=== PATIENT | female | born 1960 | race Caucasian/White ===

== ENCOUNTER 2022-03-19 11:10 | Emergency (ER) | payer OTHER, SELFPAY ==
--- NOTE | ~2022-03-19 | CT_ITS ---
EXAMINATION: CT HEAD WITHOUT CONTRAST CLINICAL INFORMATION: Dizziness COMPARISON: None TECHNIQUE: Contiguous axial imaging was performed from the skull base to vertex without intravenous administration of contrast. This CT examination was performed using dose optimization techniques as appropriate, variously including the following: *Automated exposure control *Adjustment of mA and/or kV according to patient size (this includes techniques or standardized protocols for targeted exams where dose is matched to indication/reason for exam; i.e. extremities or head) *Use of iterative reconstruction technique DLP: 635 mGy-cm FINDINGS: Head: There is no evidence of acute intracranial hemorrhage or edematous territorial infarction. No abnormal mass effect or midline shift is seen. Dasilva to white matter differentiation is well preserved. No extra-axial fluid collections are identified. No hydrocephalus. No significant volume loss. There is no abnormal attenuation within the brain parenchyma. No acute osseous or soft tissue abnormality. The mastoid air cells and visualized portions of the paranasal sinuses are well-aerated. CT/CT head/brain wo IV con IMPRESSION: No CT evidence of acute intracranial bleed or edematous acute territorial infarction.
--- NOTE | ~2022-03-19 | XR_ITS ---
EXAMINATION: XR CHEST CLINICAL INFORMATION: Dizziness. COMPARISON: None TECHNIQUE: 2 views of the chest were obtained. FINDINGS: No significant abnormality is noted involving the heart, lungs, mediastinum, bony thorax or soft tissues. XR/XR chest 2V IMPRESSION: No acute cardiopulmonary process.
[2022-03-19 11:13] VITALS: BP 212/117; PULSE 85; RESP 18; TEMP 36.7; O2SAT 98; BMI 28.3
[2022-03-19 11:18] LABS: Glucose, Whole Blood 168 mg/dL (60-115)
--- NOTE | 2022-03-19 11:23 | ED.GENADULT ---
HPI - General Adult General Chief complaint: General Medical Stated complaint: High blood sugar/Dizzy Time Seen by Provider: 03/19/22 11:23 Source: patient Mode of arrival: ambulatory Limitations: no limitations History of Present Illness HPI narrative: Patient is a 61 year old female presenting to the emergency department today with dizziness and nausea x1 week. Patient states that over the last week she is dizzy when she climbs stairs and has been having intermittent abdominal pain. Patient states that she drinks at least 1-2 beers a day. Patient states that she is on as needed Ativan, for anxiety. Patient states that she was on lisinopril for high blood pressure, many years ago, but it made her sick so she stopped it. Patient denies any dizziness, lightheadedness, vomiting, fever, chills, blurry vision, double vision, loss of vision, chest pain, difficulty breathing, shortness of breath, back pain, night sweats, pain with urination, increased urinary frequency, increased urinary urgency, blood in her urine or stool, syncope or a near syncopal episode, recent trauma or falls, bowel incontinence, bladder incontinence, bowel retention, bladder retention, or any other complaints at this time. Onset (ago): week(s) (1) Location: abdomen Radiation: non-radiation Severity: mild Severity scale (1-10): 2 Quality: dull Pain Consistency: intermittent and now resolved Relieving factors: none Exacerbating factors: none Associated symptoms: nausea/vomiting Treatments prior to arrival: none Related Data Allergies Allergy/AdvReac Type Severity Reaction Status Date / Time No Known Allergies Allergy Verified 03/19/22 11:15 Review of Systems Constitutional: Constitutional: Reports no additional constitutional complaints, Denies chills, Denies fever(s) and Denies night sweats Eyes: Eyes: Reports no additional eye complaints, Denies blurry vision, Denies change in vision, Denies diplopia, Denies eye discharge, Denies loss of vision and Denies eye pain ENT: Reports dizziness Cardiovascular: Cardiovascular: Reports no additional cardiovascular complaints, Denies chest pain, Denies lightheadedness, Denies Loss of Consciousness and Denies dyspnea Respiratory: Respiratory: Reports no additional respiratory complaints and Denies dyspnea Gastrointestinal: Gastrointestinal: Reports no additional gastrointestinal complaints, Reports abdominal pain, Denies melena, Denies hematochezia, Denies change in bowel habits, Denies change in stool character and Reports nausea Genitourinary: Genitourinary: Denies hematuria, Denies urinary frequency, Denies dysuria, Denies urinary incontinence, Denies urinary hesitancy and Denies urinary urgency Musculoskeletal: Musculoskeletal: Reports no additional musculoskeletal complaints, Denies numbness and Denies tingling Neurologic: Reports dizziness, Denies loss of vision, Denies numbness and Denies tingling Psychiatric: Psychiatric: Reports no additional psychiatric complaints Endocrine: Endocrine: Reports no additional endocrine complaints Hematologic/Lymphatic: Hematologic/Lymphatic: Reports no additional hematologic/lymphatic complaints Allergic/Immunologic: Allergic/Immunologic: Reports no additional allergic/immunologic complaints [facility] Past Medical History Attestation statement: The following information was validated with the patient. Source: old records reviewed Social History Social History Advance Directives: Yes Advance Directives Information Provided: Yes Advance Directives on File: No Physical Exam ED Vital Signs: Vital Signs - 24 hr 03/19/22 11:13 03/19/22 11:33 03/19/22 14:31 Temperature 98.1 F Pulse Rate 85 91 69 Respiratory Rate 18 18 18 Blood Pressure 212/117 H 191/107 H 191/105 H Pulse Oximetry 98 98 98 Oxygen Delivery Method Room Air Room Air Room Air BMI result Body Mass Index 28.3 Const General: cooperative, no acute distress, alert and awake Nutritional Appearance: well nourished Orientation/consciousness: patient oriented x3 Limitations: no limitations HENMT Head: Yes normal to inspection and Yes atraumatic Ears: hearing grossly normal bilaterally and external ears normal General nose exam: Normal external nose present, no nasal discharge noted and no epistaxis Face and sinus: Yes normal facial exam, No abrasion and No laceration Mouth: Normal oral and palatal mucosa present, no drooling and no muffled voice Eyes General: appearance normal, both eyes and all related structures Periorbital: periorbital findings normal Eyelids: Yes eyelids normal Conjunctivae: conjunctivae normal Pupils: Equal, round and reactive pupils present EOM: EOMs intact bilaterally Neck Neck: Yes normal visual inspection, Yes full ROM and Yes no lymphadenopathy Chest Chest palpation & inspection: normal inspection of the chest Resp Effort & Inspection: normal respiratory effort and able to speak in complete sentences Auscultation: clear to auscultation bilaterally Cardio Rate: regular rate Rhythm: regular rhythm GI Inspection: Yes normal to inspection Palpation (GI): Soft to palpation, not firm, nontender, no guarding and not rigid Neuro General: patient oriented x3 and moves all extremities Cranial nerves: Yes Equal, round and reactive pupils present Cognition (Neuro): normal cognition Motor exam (neuro): 5/5 motor strength present throughout Sensory Exam: Normal double simultaneous stimulation for sensation Coordination: [id number] test normal Extrem General: Yes normal to inspection, Yes full ROM and Yes capillary refill normal Psych Appearance: grossly normal Mental Status: mental status grossly normal Affect: normal affect Attitude: cooperative Thought process: Normal thought process present Thought content: Normal thought content present Insight: Good insight present (Psych) NIH Stroke Scale Internal: Initial- Upon Arrival Time: 11:23 Level of Consciousness: Alert Level of Consciousness Questions: Answers both questions correctly Level of Consciousness Commands: Performs both tasks correctly Best Gaze: Normal Visual: No visual loss Facial Palsy: Normal Motor Arm (Right): No drift Motor Arm (Left): No drift Motor Leg (Right): No drift Motor Leg (Left): No drift Limb Ataxia: Absent Sensory: Normal Best Language: No aphasia Dysarthia: Normal Extinction and Inattention: No abnormality Score: 0 Medical Decision Making MDM Narrative Medical decision making narrative: Patient is a 61 year old female presenting to the emergency department today with intermittent dizziness, intermittent abdominal pain, intermittent nausea. Patient's physical exam was unremarkable. Including a negative stroke exam. Patient's blood work showed hyponatremia at 132, as well as mildly elevated liver enzymes. Patient's elevated liver enzymes are consistent with daily alcohol use. Patient's head CT and chest x-ray showed no acute process. I explained my physical exam findings as well as all test results to the patient and the patient's fiancee. I answered all questions asked by the patient and the patient's fiancee. Patient received. Patient was hypertensive throughout her stay in the department. However, when discussing starting hypertension medication, the patient stated she would rather start with her primary care provider. I agreed with the patient's decision as this would have better follow-up. I stressed the importance of the patient taking her medication as prescribed. I stressed the importance of the patient following up with her primary care provider. I stressed the importance of the patient returning to the emergency department immediately if her symptoms were to worsen or if she were to develop any dizziness, shortness of breath, difficulty breathing, chest pain, blurry vision, loss of vision, nausea, vomiting, abdominal pain, fever, chills, back pain, or any other complaints. Patient and the patient's fiancee. Verbalized agreement and understanding with this treatment plan and discharge. Medical Records Medical records reviewed: Yes I reviewed the patient's medical records. Lab Data Lab results reviewed: Yes I reviewed the patient's lab results. Result diagrams: 03/19/22 11:41 03/19/22 11:41 Labs: Lab Results 03/19/22 03/19/22 03/19/22 Range/Units 11:14 11:41 11:41 WBC 6.8 (4.8-10.8) X10*3/uL RBC 3.90 L (4.20-5.50) X10*6/uL Hgb 13.6 (12.0-16.0) g/dl Hct 37.3 (37.0-47.0) % MCV 95.6 (80.0-98.0) fL MCH 34.9 H (27.0-33.0) pg MCHC 36.5 H (31.0-35.0) g/dl RDW 12.1 (11.0-16.0) % Plt Count 180 (160-400) X10*3/uL MPV 8.5 L (9.4-12.3) fL Immature Gran % (Auto) 0.3 (0.0-0.4) % Neut % (Auto) 76.7 H (45-73) % Lymph % (Auto) 14.5 L (20-40) % Faulkner % (Auto) 8.3 (2-11) % Eos % (Auto) 0.1 (0-4) % Baso % (Auto) 0.1 (0-2) % Lymph # (Auto) 1.0 L (1.2-4.9) X10*3/uL Faulkner # (Auto) 0.6 (0.1-1.2) X10*3/uL Eos # (Auto) 0.0 (0.0-0.4) X10*3/uL Baso # (Auto) 0.0 (0.0-0.2) X10*3/uL Abs Immat Gran (auto) 0.02 (0.00-0.03) X10*3/uL Absolute Neuts (auto) 5.2 (2.0-8.3) x10*3/uL Absolute Nucleated RBC 0.000 (0.0-0.012) X10*3/uL Nucleated RBC % (auto) 0.0 (0.0-0.2) /100WBC Sodium 132 L (135-145) mmol/L Potassium 4.2 (3.3-5.1) mmol/L Chloride 95 L (96-108) mmol/L Carbon Dioxide 25 (22-29) mmol/L Anion Gap 16 (12-20) BUN 6 L (9-16) mg/dL Creatinine 0.69 (0.5-1.4) mg/dL Estim Creat Clear Calc 73.6 Estimated GFR > 60 POC Glucose 168 H (60-115) mg/dL Random Glucose 142 H (60-115) mg/dL Calcium 9.7 (8.4-10.2) mg/dL Magnesium 1.7 (1.6-2.6) mg/dL Total Bilirubin 1.7 H (0.0-1.0) mg/dL AST 96 H (5-31) U/L ALT 98 H (0-31) U/L Alkaline Phosphatase 66 (39-117) U/L Total Protein 7.5 (6.5-8.0) g/dL Albumin 4.9 (3.5-5.0) g/dL Ethyl Alcohol mg/dL COVID-19 ([facility]) (Negative) COVID-19 Clin Com 03/19/22 03/19/22 Range/Units 11:41 11:41 WBC (4.8-10.8) X10*3/uL RBC (4.20-5.50) X10*6/uL Hgb (12.0-16.0) g/dl Hct (37.0-47.0) % MCV (80.0-98.0) fL MCH (27.0-33.0) pg MCHC (31.0-35.0) g/dl RDW (11.0-16.0) % Plt Count (160-400) X10*3/uL MPV (9.4-12.3) fL Immature Gran % (Auto) (0.0-0.4) % Neut % (Auto) (45-73) % Lymph % (Auto) (20-40) % Faulkner % (Auto) (2-11) % Eos % (Auto) (0-4) % Baso % (Auto) (0-2) % Lymph # (Auto) (1.2-4.9) X10*3/uL Faulkner # (Auto) (0.1-1.2) X10*3/uL Eos # (Auto) (0.0-0.4) X10*3/uL Baso # (Auto) (0.0-0.2) X10*3/uL Abs Immat Gran (auto) (0.00-0.03) X10*3/uL Absolute Neuts (auto) (2.0-8.3) x10*3/uL Absolute Nucleated RBC (0.0-0.012) X10*3/uL Nucleated RBC % (auto) (0.0-0.2) /100WBC Sodium (135-145) mmol/L Potassium (3.3-5.1) mmol/L Chloride (96-108) mmol/L Carbon Dioxide (22-29) mmol/L Anion Gap (12-20) BUN (9-16) mg/dL Creatinine (0.5-1.4) mg/dL Estim Creat Clear Calc Estimated GFR POC Glucose (60-115) mg/dL Random Glucose (60-115) mg/dL Calcium (8.4-10.2) mg/dL Magnesium (1.6-2.6) mg/dL Total Bilirubin (0.0-1.0) mg/dL AST (5-31) U/L ALT (0-31) U/L Alkaline Phosphatase (39-117) U/L Total Protein (6.5-8.0) g/dL Albumin (3.5-5.0) g/dL Ethyl Alcohol < 10 mg/dL COVID-19 ([facility]) Negative (Negative) COVID-19 Clin Com See Note Imaging Data Chest x-ray: Attestation: I personally reviewed and interpreted this imaging study as follows: My impression: No acute process Radiologist's impression: EXAMINATION: XR CHEST CLINICAL INFORMATION: Dizziness. COMPARISON: None TECHNIQUE: 2 views of the chest were obtained. FINDINGS: No significant abnormality is noted involving the heart, lungs, mediastinum, bony thorax or soft tissues. XR/XR chest 2V IMPRESSION: No acute cardiopulmonary process. Dictated By: Storm Salinas MD Signed By: Electronically signed by Storm Salinas MD 03/19/[address] scan - head: Attestation: I personally reviewed and interpreted this imaging study as follows: My impression: No acute process Radiologist's impression: EXAMINATION: CT HEAD WITHOUT CONTRAST CLINICAL INFORMATION: Dizziness? COMPARISON: None TECHNIQUE: Contiguous axial imaging was performed from the skull base to vertex without intravenous administration of contrast. This CT examination was performed using dose optimization techniques as appropriate, variously including the following: *Automated exposure control *Adjustment of mA and/or kV according to patient size (this includes techniques or standardized protocols for targeted exams where dose is matched to indication/reason for exam; i.e. extremities or head) *Use of iterative reconstruction technique DLP: 635 mGy-cm FINDINGS: Head: There is no evidence of acute intracranial hemorrhage or edematous territorial infarction. No abnormal mass effect or midline shift is seen. Dasilva to white matter differentiation is well preserved. No extra-axial fluid collections are identified. No hydrocephalus. No significant volume loss. There is no abnormal attenuation within the brain parenchyma. No acute osseous or soft tissue abnormality. The mastoid air cells and visualized portions of the paranasal sinuses are well-aerated. CT/CT head/brain wo IV con IMPRESSION: No CT evidence of acute intracranial bleed or edematous acute territorial infarction. Dictated By: Sal Klein MD Signed By: Electronically signed by Sal Klein MD 03/19/22 1211 Discharge Plan Discharge Clinical Impression: Acute hyponatremia Patient Disposition: Home, Self-Care Additional Instructions: Follow up with your primary care provider. Return to the emergency department immediately if your symptoms worsen or if you develop any dizziness, shortness of breath, difficulty breathing, chest pain, blurry vision, loss of vision, nausea, vomiting, abdominal pain, fever, chills, back pain, or any other complaints. Referrals: Torsten Roberts MD [Primary Care Provider] - Interventions: ED Discharge Assessment Last Done: 03/19/22 14:43 Discharge Date/Time: 03/19/22 14:45 Print Language: Lao
[2022-03-19] MEDS: Ondansetron ODT 4 MG TAB.RAPDIS TRANSLINGU (11:32)
[2022-03-19 11:33] VITALS: BP 191/107; PULSE 91; RESP 18; O2SAT 98
[2022-03-19 11:47] LABS: MANUAL DIFF FLAG NO
[2022-03-19 11:50] LABS: Basophils Percent Auto 0.1 % (0-2); Eosinophils Percent Auto 0.1 % (0-4); Hematocrit 37.3 % (37.0-47.0); Hemoglobin 13.6 g/dl (12.0-16.0); Imm Gran Abs Auto 0.02 X10*3/uL (0.00-0.03); Imm Gran Pct Auto 0.3 % (0.0-0.4); Lymphocytes Percent Auto 14.5 % (20-40); Mean Corpuscular HGB Conc 36.5 g/dl (31.0-35.0); Mean Corpuscular Hemoglobin 34.9 pg (27.0-33.0); Mean Corpuscular Volume 95.6 fL (80.0-98.0); Mean Platelet Volume 8.5 fL (9.4-12.3); Monocytes Absolute Auto 0.6 X10*3/uL (0.1-1.2); Monocytes Percent Auto 8.3 % (2-11); Neutrophils Absolute Auto 5.2 x10*3/uL (2.0-8.3); Neutrophils Percent Auto 76.7 % (45-73); Platelet Count 180 X10*3/uL (160-400); Red Cell Distribution Width 12.1 % (11.0-16.0); White Blood Count 6.8 X10*3/uL (4.8-10.8)
[2022-03-19 12:03] LABS: COVID-19 Test Negative (Negative)
[2022-03-19 12:16] LABS: Ethanol < 10 mg/dL
[2022-03-19 12:18] LABS: Alanine Aminotransferase 98 U/L (0-31); Albumin Level 4.9 g/dL (3.5-5.0); Alkaline Phosphatase 66 U/L (39-117); Anion Gap 16 (12-20); Aspartate Amino Transferase 96 U/L (5-31); Bilirubin Total 1.7 mg/dL (0.0-1.0); Blood Urea Nitrogen 6 mg/dL (9-16); Calcium 9.7 mg/dL (8.4-10.2); Carbon Dioxide 25 mmol/L (22-29); Chloride 95 mmol/L (96-108); Creatinine Clr Calc Pharmacy 73.6; Estimated Glomerular Filt Rate > 60; Glucose Random 142 mg/dL (60-115); Magnesium 1.7 mg/dL (1.6-2.6); Potassium 4.2 mmol/L (3.3-5.1); Sodium 132 mmol/L (135-145); Total Protein 7.5 g/dL (6.5-8.0)
[2022-03-19] MEDS: 0.9 % Sodium Chloride 1,000 ML 999 ML IV (13:06)
[2022-03-19 14:31] VITALS: BP 191/105; PULSE 69; RESP 18; O2SAT 98
== END 2022-03-19 14:45 | disposition home or self-care (01) ==
PROVIDERS: Physician Assistant Medical; Emergency Provider Emergency Medicine; PCP Pediatrics
DX: E87.1 Hypo-osmolality and hyponatremia (principal); I10 Essential (primary) hypertension; R42 Dizziness and giddiness; Z20.822 Contact with and (suspected) exposure to COVID-19
CPT/HCPCS: 36415; 70450; 71046; 80053; 82077; 82947; 83735; 85025; 87635; 96360; 99284

== ENCOUNTER 2023-08-07 10:47 | Outpatient (AMB) | payer OTHER, SELFPAY ==
--- NOTE | 2023-08-07 10:51 | HO.NEPHOV_ITS ---
HPI HPI Comments History of Present Illness Details I had the delight of seeing Jing who is a 62 year old female with history of hyponatremia and hypertension.she drinks at least 1-2 beers a day. Patient states that she used to take Ativan, for anxiety as on a needed basis. She was started on amlodipine in the past for blood pressure but was causing gingival issues and it was discontinued. Subsequently she was started on MILA inhibitor/hydrochlorothiazide which has been changed due to hyponatremia. Currently she is not on any diuretics. Patient denies any dizziness, lightheadedness, vomiting, fever, chills, blurry vision, double vision, loss of vision, chest pain, difficulty breathing, shortness of breath, back pain, night sweats, pain with urination, increased urinary frequency, increased urinary urgency, blood in her urine or stool, syncope or a near syncopal episode, recent trauma or falls, bowel incontinence, bladder incontinence, bowel retention, bladder retention, or any other complaints at this time. She has no weight loss, hemoptysis or any history of malignancy. She has not known to have any thyroid dysfunction, history of hyperkalemia, excessive free water intake, heart failure, paraproteinemia. She claims to be compliant with her medications. Her renal functions are normal. [facility] Medical History (Updated 09/04/23 @ 06:55 by Demetri Joseph MD) Mild anxiety Insomnia Internal hemorrhoids Osteoarthritis Lesion of liver Hyperkalemia Hyponatremia Hypercholesterolemia Essential (primary) hypertension Surgical History (Updated 08/07/23 @ 09:42 by Jenni Ortiz MA) H/O section H/O colonoscopy Family History (Updated 08/07/23 @ 10:38 by Jenni Ortiz MA) Father Arthritis Diabetes Heart disease Brother Malignant tumor of urinary bladder Sister Cerebral palsy Mother Amyotrophic lateral sclerosis Social History (Updated 08/07/23 @ 10:38 by Jenni Ortiz MA) Alcohol intake: current Comment: Occasional Patient Tobacco Use Status: Never used Tobacco Vital Signs 08/07/23 10:54 Height 5 ft 1 in Weight 139 lb 4 oz BMI 26.3 BP 144/80 H Blood Pressure Location Lt brachial Position Sitting Pulse 70 Pulse Source Pulse Oximeter Pulse Oximetry (%) 99 Oxygen Delivery Method Room Air Physical Exam Vital Signs: Last Vital Signs Pulse 70 08/07/23 10:54 BP 144/80 H 08/07/23 10:54 Pulse Ox 99 08/07/23 10:54 Oxygen Delivery Method Room Air 08/07/23 10:54 BMI result Body Mass Index 26.3 Const General: comfortable and no acute distress Orientation/consciousness: patient oriented x3 HEENT Head: Yes normocephalic Mouth: Normal oral and palatal mucosa present Eyes EOM: EOMs intact bilaterally Neck Neck: Yes supple Resp Auscultation: clear to auscultation bilaterally Cardio Jugular venous distension: no JVD Rate: regular rate GI Palpation (GI): Soft to palpation Auscultation: normal bowel sounds General: Yes no CVA tenderness Back/Spine/Pelvis Back: no CVA tenderness Skin General skin exam: no rashes or lesions noted Neuro General: patient oriented x3 and moves all extremities Extrem General: Yes no pedal edema Assessment & Plan Assessment & Plan (1) Hypertension: Code(s): I10 - Essential (primary) hypertension Qualifiers: Hypertension type: primary hypertension Qualified Code(s): I10 - Essential (primary) hypertension (2) Hyponatremia: Code(s): E87.1 - Hypo-osmolality and hyponatremia Plan Jing most likely has mild excess ADH. Differential diagnosis includes possibility of beer potomania. She does not have any mentation changes or weakness. She was euvolemic. Her last serum sodium was 132. She had been on hydrochlorothiazide which had been discontinued. I ordered cortisol, serum immunofixation, urine sodium, serum and urine osmolality along with uric acid. She is on diltiazem. 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 I started her on carvedilol 6.25 mg twice daily. I will continue to optimize her antihypertensive medications based on evolving data. All questions answered. Follow-up appointment given. Orders: Orders Cortisol Random 08/07/23 I10 - Essential (primary) hypertension, E87.1 - Hypo- osmolality and hyponatremia Immunofixation Pnl, Serum 08/07/23 I10 - Essential (primary) hypertension, E87.1 - Hypo-osmolality and hyponatremia Sodium Urine Random 08/07/23 I10 - Essential (primary) hypertension, E87.1 - Hypo-osmolality and hyponatremia Osmolality Urine 08/07/23 I10 - Essential (primary) hypertension, E87.1 - Hypo- osmolality and hyponatremia Uric Acid 08/07/23 I10 - Essential (primary) hypertension, E87.1 - Hypo- osmolality and hyponatremia Osmolality, Serum 08/07/23 I10 - Essential (primary) hypertension, E87.1 - Hypo- osmolality and hyponatremia Medications: New carvedilol must administer with a meal/food 6.25 mg PO BID 60 tabs 3RF 30 days diltiazem HCl 120 mg PO DAILY 30 caps 2RF 30 days Coding Level of Care Code New Pt Level 4 (55323) Diagnoses Primary hypertension I10 Hypertension type: primary hypertension Hyponatremia E87.1 Results Reviewed Nephrology Results: Hgb 13.6 g/dl (12.0-16.0) 03/19/22 WBC 6.8 X10*3/uL (4.8-10.8) 03/19/22 Plt Count 180 X10*3/uL (160-400) 03/19/22 Sodium 132 mmol/L (135-145) L 03/19/22 Potassium 4.2 mmol/L (3.3-5.1) 03/19/22 Chloride 95 mmol/L (96-108) L 03/19/22 Carbon Dioxide 25 mmol/L (22-29) 03/19/22 BUN 6 mg/dL (9-16) L 03/19/22 Creatinine 0.69 mg/dL (0.5-1.4) 03/19/22 Calcium 9.7 mg/dL (8.4-10.2) 03/19/22
[2023-08-07 10:54] VITALS: BP 144/80; PULSE 70; O2SAT 99; BMI 26.3
== END 2023-08-07 11:53 | disposition home or self-care (01) ==
PROVIDERS: PCP Pediatrics; Visit Provider Internal Medicine Nephrology
DX: I10 Essential (primary) hypertension (principal); E87.1 Hypo-osmolality and hyponatremia
CPT/HCPCS: 99204

== ENCOUNTER → 2023-08-07 10:47 | Outpatient (BNVA) | payer OTHER, SELFPAY | PROVIDERS: PCP Pediatrics; Visit Provider Internal Medicine Nephrology ==

== ENCOUNTER 2023-09-05 12:16 | Outpatient (AMB) | payer OTHER, SELFPAY ==
[2023-09-05 12:24] VITALS: BP 124/70; PULSE 53; O2SAT 97; BMI 26.3
--- NOTE | 2023-09-05 12:24 | HO.NEPHOV_ITS ---
HPI HPI Comments History of Present Illness Details I had the delight of seeing Jing who is a 62 year old female with history of hyponatremia and hypertension. Patient states that she used to take Ativan, for anxiety as on a needed basis. She was started on amlodipine in the past for blood pressure but was causing gingival issues and it was discontinued. Subsequently she was started on MILA inhibitor/hydrochlorothiazide which has been changed due to hyponatremia. Currently she is not on any diuretics. Patient denies any dizziness, lightheadedness, vomiting, fever, chills, blurry vision, double vision, loss of vision, chest pain, difficulty breathing, shortn ess of breath, back pain, night sweats, pain with urination, increased urinary frequency, increased urinary urgency, blood in her urine or stool, syncope or a near syncopal episode, recent trauma or falls, bowel incontinence, bladder incontinence, bowel retention, bladder retention, or any other complaints at this time. She has no weight loss, hemoptysis or any history of malignancy. She has not known to have any thyroid dysfunction, history of hyperkalemia, excessive free water intake, heart failure, paraproteinemia. She claims to be compliant with her medications. Her renal functions are normal. Her serum K went up and her ARB had been discontinued. She now is on Carvedilol bid & diltiazem in the noon time. This is keeping her BP at goal. [facility] Medical History (Updated 09/04/23 @ 06:55 by Demetri Joseph MD) Mild anxiety Insomnia Internal hemorrhoids Osteoarthritis Lesion of liver Hyperkalemia Hyponatremia Hypercholesterolemia Essential (primary) hypertension Surgical History H/O section H/O colonoscopy Family History Father Arthritis Diabetes Heart disease Brother Malignant tumor of urinary bladder Sister Cerebral palsy Mother Amyotrophic lateral sclerosis Social History Alcohol intake: current Comment: Occasional Patient Tobacco Use Status: Never used Tobacco Vital Signs 09/05/23 12:24 Height 5 ft 1 in Weight 139 lb 4 oz BMI 26.3 BP 124/70 Blood Pressure Location Lt brachial Position Sitting Pulse 53 Pulse Source Pulse Oximeter Pulse Oximetry (%) 97 Oxygen Delivery Method Room Air Physical Exam Vital Signs: Last Vital Signs Pulse 53 09/05/23 12:24 BP 124/70 09/05/23 12:24 Pulse Ox 97 09/05/23 12:24 Oxygen Delivery Method Room Air 09/05/23 12:24 BMI result Body Mass Index 26.3 Const General: comfortable and no acute distress Orientation/consciousness: patient oriented x3 HEENT Head: Yes normocephalic Mouth: Normal oral and palatal mucosa present Eyes EOM: EOMs intact bilaterally Neck Neck: Yes supple Resp Auscultation: clear to auscultation bilaterally Cardio Jugular venous distension: no JVD Rate: regular rate GI Palpation (GI): Soft to palpation Auscultation: normal bowel sounds General: Yes no CVA tenderness Back/Spine/Pelvis Back: no CVA tenderness Skin General skin exam: no rashes or lesions noted Neuro General: patient oriented x3 and moves all extremities Extrem General: Yes no pedal edema Assessment & Plan Assessment & Plan (1) Hypertension: Code(s): I10 - Essential (primary) hypertension Qualifiers: Hypertension type: primary hypertension Qualified Code(s): I10 - Essential (primary) hypertension (2) Hyponatremia: Code(s): E87.1 - Hypo-osmolality and hyponatremia Plan Jing most likely has mild excess ADH. She does not have any mentation changes or weakness. She was euvolemic. Her last serum sodium was 132. She had been on hydrochlorothiazide which had been discontinued. Her cortisol, serum immunofixation, urine sodium, serum and urine osmolality along with uric acid were reviewed. Her losartan was dicontinued when her serum K went up to 5.7. She is on diltiazem. 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 ( gingival issues at 24 mg but not now). She can continue carvedilol 6.25 mg twice daily and DIltiazem 120 mg in the afternoon. All questions answered. Follow-up appointment given Orders: Orders Blood Urea Nitrogen Today E87.1 - Hypo-osmolality and hyponatremia, I10 - E ssential (primary) hypertension Electrolytes Today E87.1 - Hypo-osmolality and hyponatremia, I10 - Essential (primary) hypertension Creatinine Today E87.1 - Hypo-osmolality and hyponatremia, I10 - Essential (primary) hypertension Coding Level of Care Code Est Pt Level 4 (55017) Diagnoses Primary hypertension I10 Hypertension type: primary hypertension Hyponatremia E87.1 Results Reviewed Nephrology Results: Hgb 13.6 g/dl (12.0-16.0) 03/19/22 WBC 6.8 X10*3/uL (4.8-10.8) 03/19/22 Plt Count 180 X10*3/uL (160-400) 03/19/22 Sodium 132 mmol/L (135-145) L 03/19/22 Potassium 4.2 mmol/L (3.3-5.1) 03/19/22 Chloride 95 mmol/L (96-108) L 03/19/22 Carbon Dioxide 25 mmol/L (22-29) 03/19/22 BUN 6 mg/dL (9-16) L 03/19/22 Creatinine 0.69 mg/dL (0.5-1.4) 03/19/22 Calcium 9.7 mg/dL (8.4-10.2) 03/19/22
== END 2023-09-05 12:42 | disposition home or self-care (01) ==
PROVIDERS: PCP Pediatrics; Visit Provider Internal Medicine Nephrology
DX: I10 Essential (primary) hypertension (principal); E87.1 Hypo-osmolality and hyponatremia
CPT/HCPCS: 99214

== ENCOUNTER → 2023-09-05 12:16 | Outpatient (BNVA) | payer OTHER, SELFPAY | PROVIDERS: PCP Pediatrics; Visit Provider Internal Medicine Nephrology ==

== ENCOUNTER 2023-12-25 11:18 | Outpatient (AMB) | payer MEDICARE, SELFPAY ==
[2023-12-25 11:21] VITALS: BP 130/78; PULSE 68; TEMP 36.6; O2SAT 97; BMI 26.8
--- NOTE | 2023-12-25 11:21 | MHC.OFFWIV ---
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 She says it started on her bilateral legs and has moved to her hands her feet and her back. She states she has tried Benadryl pills and Benadryl cream as well as hydrocortisone cream with minimal improvement. She denies any use of new medications, vitamins foods, new laundry detergents or fabric softeners or moisturizers or anything she is putting on her skin. She states the rash is worse at night. She does not have a history of allergies and does not take a daily allergy pill. [facility] Medical History (Updated 12/25/23 @ 11:36 by Rita Mullins PA-C) Mild anxiety Insomnia Internal hemorrhoids Osteoarthritis Lesion of liver Hyperkalemia Hyponatremia Hypercholesterolemia Essential (primary) hypertension Surgical History H/O section H/O colonoscopy Family History Father Arthritis Diabetes Heart disease Brother Malignant tumor of urinary bladder Sister Cerebral palsy Mother Amyotrophic lateral sclerosis Social History Alcohol intake: current Comment: Occasional Patient Tobacco Use Status: Never used Tobacco Review of Systems Const All systems reviewed & are unremarkable except as noted in HPI and below Physical Exam Const General: cooperative, healthy appearing, comfortable, no acute distress and well developed Orientation/consciousness: patient oriented x3 Limitations: no limitations Eyes General: appearance normal, both eyes and all related structures Resp Effort & Inspection: normal respiratory effort and able to speak in complete sentences Skin Other: Singular and multple areas of mostly crusted over pinpoint, erythematous lesions sporadic on back, bilateral arms and legs. Neuro General: patient oriented x3 Assessment & Plan Assessment & Plan (1) Contact dermatitis: Code(s): L25.9 - Unspecified contact dermatitis, unspecified cause Qualifiers: Contact dermatitis type: irritant Contact dermatitis trigger: other trigger Qualified Code(s): L24.89 - Irritant contact dermatitis due to other agents Plan: Advised patient she needs to figure out what the trigger is and stop that detergent, lotion, food or medication. She is unclear as what it might be right now but she is going to go home and take a look at everything. In the meanwhile, prescribed a prednisone taper and advised to follow up with PCP if no resolution. Plan see above Medications: New prednisone see taper instructions 10 mg PO DIRECTED 21 ea 0RF Coding Level of Care Code New Pt Level 3 (30797) Diagnoses Irritant contact dermatitis due to other agents L24.89 Contact dermatitis type: irritant Contact dermatitis trigger: other trigger
== END 2023-12-25 12:49 | disposition home or self-care (01) ==
PROVIDERS: PCP Pediatrics; Visit Provider Physician Assistant
DX: L24.89 Irritant contact dermatitis due to other agents (principal)
CPT/HCPCS: 99203

== ENCOUNTER 2024-01-08 09:44 | Outpatient (AMB) | payer MEDICARE, SELFPAY ==
--- NOTE | 2024-01-08 09:48 | HO.NEPHOV_ITS ---
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 Patient states that she used to take Ativan, for anxiety as on a needed basis. She was started on amlodipine in the past for blood pressure but was causing gingival issues and it was discontinued. Subsequently she was started on MILA inhibitor/hydrochlorothiazide which has been changed due to hyponatremia. Currently she is not on any diuretics. Patient denies any dizziness, lightheadedness, vomiting, fever, chills, blurry vision, double vision, loss of vision, chest pain, difficulty breathing, shortness of breath, back pain, night sweats, pain with urination, increased urinary frequency, increased urinary urgency, blood in her urine or stool, syncope or a near syncopal episode, recent trauma or falls, bowel incontinence, bladder incontinence, bowel retention, bladder retention, or any other complaints at this time. She has no weight loss, hemoptysis or any history of malignancy. She has not known to have any thyroid dysfunction, history of hyperkalemia, excessive free water intake, heart failure, paraproteinemia. She claims to be compliant with her medications. Her renal functions are normal. Her serum K went up and her ARB had been discontinued. She now is on Carvedilol bid & diltiazem in the noon time. This is keeping her BP at goal. [facility] Medical History (Updated 12/25/23 @ 11:36 by Rita Mullins PA-C) Mild anxiety Insomnia Internal hemorrhoids Osteoarthritis Lesion of liver Hyperkalemia Hyponatremia Hypercholesterolemia Essential (primary) hypertension Surgical History H/O section H/O colonoscopy Family History Father Arthritis Diabetes Heart disease Brother Malignant tumor of urinary bladder Sister Cerebral palsy Mother Amyotrophic lateral sclerosis Social History Alcohol intake: current Comment: Occasional Patient Tobacco Use Status: Never used Tobacco Physical Exam Const General: comfortable and no acute distress Orientation/consciousness: patient oriented x3 HEENT Head: Yes normocephalic Mouth: Normal oral and palatal mucosa present Eyes EOM: EOMs intact bilaterally Neck Neck: Yes supple Resp Auscultation: clear to auscultation bilaterally Cardio Jugular venous distension: no JVD Rate: regular rate GI Palpation (GI): Soft to palpation Auscultation: normal bowel sounds General: Yes no CVA tenderness Back/Spine/Pelvis Back: no CVA tenderness Skin General skin exam: no rashes or lesions noted Neuro General: patient oriented x3 and moves all extremities Extrem General: Yes no pedal edema Assessment & Plan Assessment & Plan (1) Hypertension: Code(s): I10 - Essential (primary) hypertension Category: Medical Qualifiers: Hypertension type: primary hypertension Qualified Code(s): I10 - Essential (primary) hypertension (2) Hyponatremia: Code(s): E87.1 - Hypo-osmolality and hyponatremia Category: Medical Plan Jing most likely has mild excess ADH. She does not have any mentation changes or weakness. She was euvolemic. Her last serum sodium was 132. She had been on hydrochlorothiazide which had been discontinued. Her cortisol, serum immunofixation, urine sodium, serum and urine osmolality along with uric acid were reviewed. Her losartan was dicontinued when her serum K went up to 5.7. She is on diltiazem. 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 ( gingival issues at 240 mg but not now). She can continue carvedilol 6.25 mg twice daily and Diltiazem 120 mg in the afternoon. Labs ordered for F/U. All questions answered. Orders: Orders Creatinine Today E87.1 - Hypo-osmolality and hyponatremia, I10 - Essential (primary) hypertension Blood Urea Nitrogen Today E87.1 - Hypo-osmolality and hyponatremia, I10 - Essential (primary) hypertension Electrolytes Today E87.1 - Hypo-osmolality and hyponatremia, I10 - Essential (primary) hypertension Coding Level of Care Code Est Pt Level 4 (97709) Diagnoses Primary hypertension I10 Hypertension type: primary hypertension Hyponatremia E87.1
[2024-01-08 09:53] VITALS: BP 120/80; PULSE 78; O2SAT 98; BMI 26.9
== END 2024-01-08 10:01 | disposition home or self-care (01) ==
PROVIDERS: PCP Pediatrics; Visit Provider Internal Medicine Nephrology
DX: I10 Essential (primary) hypertension (principal); E87.1 Hypo-osmolality and hyponatremia
CPT/HCPCS: 99214

== ENCOUNTER → 2024-01-08 09:44 | Outpatient (BNVA) | payer MEDICARE, SELFPAY | PROVIDERS: PCP Pediatrics; Visit Provider Internal Medicine Nephrology | DX: I10 Essential (primary) hypertension (principal); E87.1 Hypo-osmolality and hyponatremia | CPT/HCPCS: 99212 ==

== ENCOUNTER 2024-08-12 11:43 | Outpatient (REF) | payer MEDICARE, SELFPAY ==
[2024-08-12 13:16] LABS: Anion Gap 15 (12-20); Blood Urea Nitrogen 5 mg/dL (9-16); Carbon Dioxide 25 mmol/L (22-29); Chloride 94 mmol/L (96-108); Estimated Glomerular Filt Rate > 60; Potassium 4.1 mmol/L (3.3-5.1); Sodium 130 mmol/L (135-145)
--- OUTSIDE RECORDS SUMMARY | 2024-08-12 14:13 | XMS_ITS | Data Portability ---
Author Organization [facility], [address] Address [address] [place] [id number] Assessment No assessment recorded. Plan of Treatment Reminders Order Date Submit Date Provider Last Modified By Organization Details Last Modified Time Details Appointments None recorded. Lab None recorded. Referral None recorded. Procedures None recorded. Surgeries None recorded. Imaging None recorded. Medication Orders prednisone 20 mg tablet 2022 023 [facility] #[id number], [address] [place], [address], 3 16:59:17 Allergy Relief (fluticason e) 50 mcg/actuati on nasal spray,suspe nsion 2022 023 [id number], [address] [place], [address], 3 16:59:17 amoxicillin 875 mg-potassiu m clavulanate 125 mg tablet 2022 023 [facility] #[id number], [address] [place], [address], 3 16:59:16 benzonatate 200 mg capsule 2022 023 [id number], [address] [place], [address], 3 16:59:16 Patient TargetsNo targets recorded. Patient Instructions Encounter Date Encounter Id Patient Instructions Last Modified By Organization Details Last Modified Time 09/15/2022 [id number] cough: care instructions Not available 09/15/2022 16:59:12 Sinusitis is an infection of the lining of the sinus cavities in your head. Sinusitis often follows a cold. It causes pain and pressure in your head and face. In most cases, sinusitis gets better on its own in 1 to 2 weeks. But some mild symptoms may last for several weeks. Sometimes antibiotics are needed. if you are having problems. It's also a good idea to know your test results and keep a list of the medicines you take. How can you care for yourself at home? Take an noay-ugb-ozraead pain medicine. Avoid Ibuprofen, Aleve and Aspirin if . If the doctor prescribed antibiotics, take them as directed. Do not stop taking them just because you feel better. You need to take the full course of antibiotics. Be careful when taking mzih-fie-skjgiab cold or influenza (flu) medicines and Tylenol at the same time. Many of these medicines have acetaminophen, which is Tylenol. Read the labels to make sure that you are not taking more than the recommended dose. Too much acetaminophen (Tylenol) can be harmful. Breathe warm, moist air from a steamy shower, a hot bath, or a sink filled with hot water. Avoid cold, dry air. Using a humidifier in your home may help. Follow the directions for cleaning the machine. Use saline (saltwater) nasal washes. This can help keep your nasal passages open and wash out mucus and bacteria. You can buy saline nose drops at a grocery store or drugstore. Or you can make your own at home by adding 1 teaspoon (5 millilitres) of salt and 1 teaspoon (5 millilitres) of baking soda to 2 cups (500 mL) of distilled water. If you make your own, fill a bulb syringe with the solution, insert the tip into your nostril, and squeeze gently. Blow your nose. Put a hot, wet towel or a warm gel pack on your face 3 or 4 times a day for 5 to 10 minutes each time. Try a decongestant nasal spray like oxymetazoline (Drixoral). Do not use it for more than 3 days in a row. Using it for more than 3 days can make your congestion worse. Not available 09/15/2022 16:59:10 Reason for Referral None Reported. Problems Name Problem SNOMED Code Status Onset Date Resolution Date Notes Provider Name and Address Organization Details Recorded Time Essential hypertension 65807248 Active 2022 CRISTHIAN bullock, PA - [facility] 3 16:11:08 Insomnia 883874096 Active 2022 CRISTHIAN De Leon null, PA - [facility] 3 16:11:13 Anxiety 95827481 Active 2022 CRISTHIAN bullock, PA - [facility] 3 16:11:18 Problem Notes None recorded. Procedures Surgical History Date Name Laterality Status Provider Name and Address Organization Details Recorded Time section completed CRISTHIAN IRVIN PA - [facility] 09/15/2022 16:12:25 Imaging Results None recorded. Procedure Notes None recorded. Medical Equipment None Reported. Allergies No known drug allergies Medications Name Sig Start Date Stop Date Status Note LastModified by Organization Details LastModified Time benzonatate 200 mg capsule Take 1 capsule 3 times a day by oral route as needed for 7 days. 2022 active Not Available Not Available Not Avai lable prednisone 20 mg tablet Take 2 tablets every day by oral route with meals for 4 days. 2022 active Not Available Not Available Not Avai lable amlodipine 5 mg tablet TAKE 1 TABLET BY MOUTH EVERY DAY 09/15 completed Not Available Not Available Not Available amoxicillin 875 mg tablet TAKE 1 TABLET BY MOUTH TWICE DAILY UNTIL FINISHED 09/15 completed Not Available Not Available Not Available lisinopril 10 mg tablet TAKE 1 TABLET BY MOUTH EVERY DAY active Not Available Not Available No t Available omeprazole 20 mg capsule,del ayed release TAKE 1 CAPSULE BY MOUTH EVERY DAY active Not Available Not Available No t Available lorazepam 1 mg tablet TAKE 1 TABLET BY MOUTH UP TO 3 TIMES A DAY NEEDED FOR SEVERE ANXIETY.. .. active Not Available Not Available No t Available lisinopril 10 mg-hydrochl orothiazide 12.5 mg tablet TAKE 1 TABLET BY MOUTH EVERY DAY 09/15 completed Not Available Not Available Not Available zolpidem 10 mg tablet TAKE 1 TABLET BY MOUTH EVERY DAY IN THE EVENING active Not Available Not Available No t Available fluticasone propionate 50 mcg/actuati on nasal spray,suspe nsion SPRAY 1 SPRAY BY INTRANASA L ROUTE TWICE A DAY DIRECTED active Not Available Not Available No t Available amoxicillin 875 mg-potgracielau lena clavulanate 125 mg tablet Take 1 tablet every 12 hours by oral route with meals for 10 days. 2022 active Not Available Not Available Not Shoaibai labdahiana Vitals Date Recorded Body height Provider Name an d Address Organization Details Last Updated DateTime 09/15/2022 154.94 cm CRISTHIAN IRVIN PA - [facility] 09/15/2022 16:10:14 Date Recorded Body mass index (BMI) Body weight Provider Name and Address Organization Details Last Updated DateTime 09/15/2022 25.5 kg/m2 17177.97 g [facility]HIAN [facility] 09/15/2022 16:10:16 Date Recorded Body temperature Provider Name a nd Address Organization Details Last Updated DateTime 09/15/2022 98.1 [degF] CRISTHIAN IRVIN PA - [facility] 09/15/2022 16:13:18 Date Recorded Respiratory rate Provider Name a nd Address Organization Details Last Updated DateTime 09/15/2022 18 /min CRISTHIAN IRVIN PA - [facility] 09/15/2022 16:13:20 Date Recorded Heart rate Provider Name an d Address Organization Details Last Updated DateTime 09/15/2022 62 /min CRISTHIAN IRVIN PA - [facility] 09/15/2022 16:13:23 Date Recorded Oxygen saturation Oxygen saturation in Arterial blood by Pulse oximetry Provider Name and Address Organization Details Last Updated DateTime 09/15/2022 99 % 99 % CRISHTIAN IRVIN PA - [facility] 09/15/2022 16:13:32 Date Recorded Systolic blood pressure Diastolic blood pressure Provider Name and Address Organization Details Last Updated DateTime 09/15/2022 150 mm[Hg] 83 mm[Hg] CRISTHIAN NICKERSON - [facility] 09/15/2022 16:13:44 Social History Question Answer Notes LastModified by Organizat ion Details LastModified Time Tobacco Smoking Status Never Smoker CRISTHIAN bullock PA - [facility] 09/15/2022 16:12:11 What Is Your Level Of Alcohol Consumption? Occasional Information not available 09/15/2022 What Is Your Water Source? City Information not available 09/15/2022 What Is Your Heat Source? Other Information not available 09/15/2022 Have You Had Direct Contact, Or Contact During Intimacy, With Monkeypox Rash, Scabs, Or Body Fluids From A Person With Monkeypox? No Information not available 09/15/2022 Do You Use Any Illicit Or Recreational Drugs? No Information not available 09/15/2022 Have You Recently Traveled Abroad? No Information not available 09/15/2022 Do You Or Have You Ever Used Any Other Forms Of Tobacco Or Nicotine? No Information not available 09/15/2022 Sex: Unknown Functional Status None recorded. Mental Status None recorded. Family History Relationship Description Onset Age of this Age Resolved Age Notes LastModified by Organization Details LastModified Time Father Diabetes mellitus Not available 10/2022 16:11:37 Father Hypertensive disorder Not available 10/2022 16:12:01 Mother Amyotrophic lateral sclerosis Not available 10/2022 16:11:45 Mother Hypertensive disorder Not available 10/2022 16:12:01 Medical History No medical history recorded. Gynecological HistoryNo gynecological history recorded. Obstetrics History GPAL:G 0 P 0 0 0 0 Past Encounters Encounter ID Performer Location Encounter Start Date Encounter Closed Date Diagnosis/Indication Diagnosis SNOMED-CT Code Diagnosis ICD10 Code Diagnosis Note [id number] [facility] [address] [place] [phone] 06/29/2019 14:51:30 06/29/2019 15:16:02 [id number] Ezequiel Burnette NP [address] [facility] [place] [phone] 09/15/2022 15:17:12 09/15/2022 17:09:10 Acute sinusitis 52459270 J01.90 Health Concerns Section Related Observation LastModified by Organization Detai ls LastModified Time None Recorded Concern Status LastModified by Organization Details LastModified Time None Recorded Advance Directives Directive None Recorded Payers Encounter Date Sequence Insurance Name Policy Number Policy Marsh Covered Member ID Marsh Member ID Guarantor Name 06/29/2019 1 [facility] [id number] 4 Jing Jaramillo [facility] [id number] Jing [facility] 09/15/2022 1 [facility] [id number] Jing Jaramillo [facility] [id number] Jing Mariano Notes Date Note Type Note Provider Name and Address Organization Details Recorded Time 09/15/2022 text/html CongestionReport ed bypatient.Notes:nasal congestion with post nasal drip x 2 weeks. denies any fever or fever with chills. no SOB or respiratory distress. Ezequiel Burnette NP [address] [place], [address], [place] - [facility] 09/15/2022 16:59:30 OBGyn Episode No OBEpisode recorded.
--- OUTSIDE RECORDS SUMMARY | 2024-08-12 14:14 | XMS_ITS | Data Portability ---
Author Organization [facility], Main Office Address [address] [facility] [address] [place] [address] Care Team Providers Care Hop Weigher Name Role Phone TORSTEN GROVES Primary Care Provider [phone] ADRIAN ISABEL Psychiatrist CHRIS NIÑO Orthopedic Surgeon BRAEDEN LONG Supervisory Training Specialist MIC JOSEPH Missileman HELEN CANELA Engineering Technician Parking Assessment No assessment recorded. Plan of Treatment Reminders Order Date Submit Date Provider Last Modified By Organization Details Last Modified Time Details Appointments None record ed. Lab CMP, serum or plasma 2022 023 [facility], [address] [place], [address], 3 16:50:27 lipid panel, serum 2022 023 [facility], [address] [place], [address], 3 16:50:29 gamma- glutam yl transf erase (ggt), serum 2022 023 [facility], [address] [place], [address], 3 16:50:28 CBC w/ auto diff 2022 023 [facility], [address] [place], [address], 3 17:10:26 osmola lity, serum 2022 023 VALORIE [facility], [address] [place], [address], 3 20:52:57 sodium , urine 2022 023 [facility], [address] [place], [address], 3 20:21:00 osmola lity, urine 2022 023 VALORIE [facility], [address] [place], [address], 3 20:40:47 urinal ysis, comple te 2022 023 [facility], [address] [place], [address], 3 20:11:29 CMP, serum or plasma 2022 023 [facility]ower [facility], [address] [place], [address], 3 20:39:07 BMP, serum or plasma 2022 023 [facility], [address] [place], [address], 4 21:41:47 urinal ysis, comple te 2022 023 VALORIE [facility], [address] [place], [address], 4 16:43:14 CMP, serum or plasma 2023 024 [facility] [address], [place], [address], 4 08:40:24 lipid panel, serum 2023 024 [email or web address] [facility], [address] [facility], [facility] [address], [place], [address], 4 08:40:24 Referral nutrit ionist /nicai marlyn referr al 2022 023 [email or web address] Not available 3 16:58:47 nutrit ionist /nicai marlyn referr al 2023 024 [email or web address] Not available 4 14:49:30 Procedures colono scopy screen ing (PROC) 2022 023 [email or web address] Not available 3 16:58:25 Surgeries None record ed. Imaging MAMMO, screen ing, bilate ral - Perfor m Diagno stic Mammog madina and Breast Ultras ound if needed / Perfor m Ultras ound Guided Aspira tion and/or Breast Biopsy if warran stacie 2023 024 [facility], [address] [facility] [address], [place], [address], 5 16:58:44 Medication Orders lisino pril 10 mg-hyd rochlo rothia zide 12.5 mg tablet 2022 023 [id number], [address] [place], [address], 3 21:54:09 diltia zem CD 120 mg capsul e,exte nded releas e 24 hr 2022 023 frankie [id number], [address] [place], [address], 3 10:11:42 diltia zem CD 240 mg capsul e,exte nded releas e 24 hr 2022 023 [id number], [address] [place], [address], 3 14:02:11 losart an 25 mg tablet 2022 023 [email or web address] [id number], [address] [place], [address], 15:28:42 Patient TargetsNo targets recorded. Patient Instructions Encounter Date Encounter Id Patient Instructions Last Modified By Organization Details Last Modified Time 08/13/2022 [id number] When You Want to Lose Weight: Care Instructions [email or web address] Not available 08/13/2022 14:55:47 Nutrition Referral and Weight Management Follow-up Information [email or web address] Not available 08/13/2022 14:55:47 high blood pressure: care instructions awychowski Not available 08/13/2022 14:55:46 learning about high blood pressure awychowski Not available 08/13/2022 14:55:47 11/08/2022 [id number] electrolyte imbalance: care instructions awychowski Not available 11/08/2022 12:05:54 hyponatremia: care instructions awychowski Not available 11/08/2022 12:05:54 high blood pressure: care instructions awychowski Not available 11/08/2022 12:05:54 learning about high blood pressure awychowski Not available 11/08/2022 12:05:54 03/11/2023 [id number] electrolyte imbalance: care instructions awychowski Not available 03/11/2023 11:03:14 hyponatremia: care instructions awychowski Not available 03/11/2023 11:03:14 high blood pressure: care instructions awychowski Not available 03/11/2023 11:03:14 learning about high blood pressure awychowski Not available 03/11/2023 11:03:15 06/11/2023 [id number] high blood pressure: care instructions awychowski Not available 06/11/2023 10:23:03 learning about high blood pressure awychowski Not available 06/11/2023 10:23:03 10/10/2023 [id number] high blood pressure: care instructions awychowski Not available 10/10/2023 14:38:25 learning about high blood pressure awychowski Not available 10/10/2023 14:38:25 learning about healthy weight awychowski Not available 10/10/2023 14:38:25 When You Want to Lose Weight: Care Instructions awychowski Not available 10/10/2023 14:38:25 Nutrition Referral and Weight Management Follow-up Information [email or web address] Not available 10/10/2023 14:38:24 Reason for Referral Port Engineer/dietitian Refer ral for Body mass index 25-29 - overweight Referring Physician: Torsten Groves [facility], Encounter Date: 08/13/2022 Port Engineer/dietitian Refer ral for Body mass index 25-29 - overweight Referring Physician: Torsten Groves [facility] Tyrel, Encounter Date: 10/10/2023 Results Created Date Observation Date Name Description Value Unit Range Abnormal Flag Note LastModifiedBy Organization Detail LastModifiedTime 09/07/19 23 09/07/2022 COMPR EHENS MARCELO METAB OLIC PANL glucose 93 mg/dL (70-99 ) Not Available [facility] [address] [place], [address], 09/07/2022 16:50:27 09/07/19 23 09/07/2022 COMPR EHENS MARCELO METAB OLIC PANL BUN 7 mg/dL (8-23) low Not Available [facility] [address] [place], [address], 09/07/2022 16:50:27 09/07/19 23 09/07/2022 COMPR EHENS MARCELO METAB OLIC PANL creatinine 0.5 mg/dL (0.5-1 .0) Not Available [facility] [address] [place], [address], 09/07/2022 16:50:27 09/07/19 23 09/07/2022 COMPR EHENS MARCELO METAB OLIC PANL sodium 127 mmol/ L (133-1 45) low Not Available [facility] [address] [place], [address], 09/07/2022 16:50:27 09/07/19 23 09/07/2022 COMPR EHENS MARCELO METAB OLIC PANL potassium 4.5 mmol/ L (3.6-5 .2) Not Available [facility] [address] [place], [address], 09/07/2022 16:50:27 09/07/19 23 09/07/2022 COMPR EHENS MARCELO METAB OLIC PANL chloride 87 mmol/ L (98-10 7) low Not Available [facility] [address] [place], [address], 09/07/2022 16:50:27 09/07/19 23 09/07/2022 COMPR EHENS MARCELO METAB OLIC PANL bicarbonate 28 mmol/ L (22-29 ) Not Available [facility] [address] [place], [address], 09/07/2022 16:50:27 09/07/19 23 09/07/2022 COMPR EHENS MARCELO METAB OLIC PANL anion gap 12 (4-17) Not Available [facility] [address] [place], [address], 09/07/2022 16:50:27 09/07/19 23 09/07/2022 COMPR EHENS MARCELO METAB OLIC PANL albumin 5.0 gm/dL (3.4-4 .8) high Not Available [facility] [address] [place], [address], 09/07/2022 16:50:27 09/07/19 23 09/07/2022 COMPR EHENS MARCELO METAB OLIC PANL calcium 10.3 mg/dL (8.6-1 0.5) Not Available [facility] [address] [place], [address], 09/07/2022 16:50:27 09/07/19 23 09/07/2022 COMPR EHENS MARCELO METAB OLIC PANL bilirubin,to tommy 0.8 mg/dL (0-1.2 ) Not Available [facility] [address] [place], [address], 09/07/2022 16:50:27 09/07/19 23 09/07/2022 COMPR EHENS MARCELO METAB OLIC PANL total protein 7.1 gm/dL (6.2-8 .2) Not Available [facility] [address] [place], [address], 09/07/2022 16:50:27 09/07/19 23 09/07/2022 COMPR EHENS MARCELO METAB OLIC PANL Ag ratio 2.4 Not Available [facility] [address] [place], [address], 09/07/2022 16:50:27 09/07/19 23 09/07/2022 COMPR EHENS MARCELO METAB OLIC PANL AST 27 U/L (0-32) Not Available [facility] [address] [place], [address], 09/07/2022 16:50:27 09/07/19 23 09/07/2022 COMPR EHENS MARCELO METAB OLIC PANL alk phos 59 U/L (35-10 4) Not Available [facility] [address] [place], [address], 09/07/2022 16:50:27 09/07/19 23 09/07/2022 COMPR EHENS MARCELO METAB OLIC PANL ALT 18 U/L (0-33) Not Available [facility] [address] [place], [address], 09/07/2022 16:50:27 09/07/19 23 09/07/2022 COMPR EHENS MARCELO METAB OLIC PANL estimated GFR creatinine 104 mL/mi n/1.7 3_M2 Creat inine based estim ated glome rular filtr ation (eGFR ) in adult s is calcu lated using the Natio nal Kidne y Found ation recom emery d 2020 CKD-E PI equat ion. Estim ates GFR from serum creat inine , age and sex. Not Available [facility] [address] [place], [address], 09/07/2022 16:50:27 09/07/19 23 09/07/2022 GGTP ggtp 26 U/L (5-36) Not Available [facility] [address] [place], [address], 09/07/2022 16:50:28 09/07/19 23 09/07/2022 LIPID PANEL cholesterol, total 207 mg/dL (<200) high Not Available [facility] [address] [place], [address], 09/07/2022 16:50:29 09/07/19 23 09/07/2022 LIPID PANEL triglyceride 85 mg/dL (<150) Not Available [facility] [address] [place], [address], 09/07/2022 16:50:29 09/07/19 23 09/07/2022 LIPID PANEL HDL chol 74 mg/dL (>39) Not Available [facility] [address] [place], [address], 09/07/2022 16:50:29 09/07/19 23 09/07/2022 LIPID PANEL LDL cholesterol, calculated 116 mg/dL (0-130 ) Not Available [facility] [address] [place], [address], 09/07/2022 16:50:29 09/07/19 23 09/07/2022 LIPID PANEL non HDL cholesterol (calc) 133 mg/dL (<160) Not Available [facility] [address] [place], [address], 09/07/2022 16:50:29 09/07/19 23 09/07/2022 COMPL ETE CBC WITH DIFF WBC 5.9 K/mm3 (4.0-1 1.0) Not Available [facility] [address] [place], [address], 09/07/2022 17:10:26 09/07/19 23 09/07/2022 COMPL ETE CBC WITH DIFF RBC 4.00 M/mm3 (4.20- 5.40) low Not Available [facility] [address] [place], [address], 09/07/2022 17:10:26 09/07/19 23 09/07/2022 COMPL ETE CBC WITH DIFF HGB 13.4 gm/dL (11.7- 15.5) Not Available [facility] [address] [place], [address], 09/07/2022 17:10:26 09/07/19 23 09/07/2022 COMPL ETE CBC WITH DIFF HCT 38.2 % (35.7- 45.8) Not Available [facility] [address] [place], [address], 09/07/2022 17:10:26 09/07/19 23 09/07/2022 COMPL ETE CBC WITH DIFF MCV 95.5 fL (80.0- 100.0) Not Available [facility] [address] [place], [address], 09/07/2022 17:10:26 09/07/19 23 09/07/2022 COMPL ETE CBC WITH DIFF MCH 33.5 pg (27.0- 34.0) Not Available [facility] [address] [place], [address], 09/07/2022 17:10:26 09/07/19 23 09/07/2022 COMPL ETE CBC WITH DIFF MCHC 35.1 g/dL (33.0- 37.0) Not Available [facility] [address] [place], [address], 09/07/2022 17:10:26 09/07/19 23 09/07/2022 COMPL ETE CBC WITH DIFF plt 173 K/mm3 (150-4 60) Not Available [facility] [address] [place], [address], 09/07/2022 17:10:26 09/07/19 23 09/07/2022 COMPL ETE CBC WITH DIFF RDW-SD 40.8 fL (<47.0 ) Not Available [facility] [address] [place], [address], 09/07/2022 17:10:26 09/07/19 23 09/07/2022 COMPL ETE CBC WITH DIFF MPV 9.6 fL (9.4-1 2.4) Not Available [facility] [address] [place], [address], 09/07/2022 17:10:26 09/07/19 23 09/07/2022 COMPL ETE CBC WITH DIFF automated NRBC 0.0 #/100 _WBC' s Not Available [facility] [address] [place], [address], 09/07/2022 17:10:26 09/07/19 23 09/07/2022 COMPL ETE CBC WITH DIFF abs. NRBC 0.0 K/mm3 Not Available [facility] [address] [place], [address], 09/07/2022 17:10:26 09/07/19 23 09/07/2022 COMPL ETE CBC WITH DIFF neut # 4.1 K/mm3 (1.3-7 .0) Not Available [facility] [address] [place], [address], 09/07/2022 17:10:26 09/07/19 23 09/07/2022 COMPL ETE CBC WITH DIFF lymph # 1.0 K/mm3 (0.8-3 .1) Not Available [facility] [address] [place], [address], 09/07/2022 17:10:26 09/07/19 23 09/07/2022 COMPL ETE CBC WITH DIFF mono# 0.7 K/mm3 (0.4-0 .9) Not Available [facility] [address] [place], [address], 09/07/2022 17:10:26 09/07/19 23 09/07/2022 COMPL ETE CBC WITH DIFF eo # 0.0 K/mm3 (0.0-0 .4) Not Available [facility] [address] [place], [address], 09/07/2022 17:10:26 09/07/19 23 09/07/2022 COMPL ETE CBC WITH DIFF baso # 0.0 K/mm3 (0.0-0 .1) Not Available [facility] [address] [place], [address], 09/07/2022 17:10:26 09/07/19 23 09/07/2022 COMPL ETE CBC WITH DIFF abs. imm gran 0.0 K/mm3 Not Available [facility] [address] [place], [address], 09/07/2022 17:10:26 09/07/19 23 09/07/2022 COMPL ETE CBC WITH DIFF neut 70.6 % (44-76 ) Not Available [facility] [address] [place], [address], 09/07/2022 17:10:26 09/07/19 23 09/07/2022 COMPL ETE CBC WITH DIFF lymph 17.4 % (15-43 ) Not Available [facility] [address] [place], [address], 09/07/2022 17:10:26 09/07/19 23 09/07/2022 COMPL ETE CBC WITH DIFF monocyte 11.2 % (4.5-1 0.5) high Not Available [facility] [address] [place], [address], 09/07/2022 17:10:26 09/07/19 23 09/07/2022 COMPL ETE CBC WITH DIFF eo 0.2 % (0-6) Not Available [facility] [address] [place], [address], 09/07/2022 17:10:26 09/07/19 23 09/07/2022 COMPL ETE CBC WITH DIFF baso 0.3 % (0-2) Not Available [facility] [address] [place], [address], 09/07/2022 17:10:26 09/07/19 23 09/07/2022 COMPL ETE CBC WITH DIFF imm gran 0.3 % Not Available [facility] [address] [place], [address], 09/07/2022 17:10:26 09/28/19 23 09/27/2022 BASIC METAB OLIC PANEL glucose 104 mg/dL (70-99 ) high Not Available [facility] [address] [place], [address], 09/27/2022 18:29:53 09/28/19 23 09/27/2022 BASIC METAB OLIC PANEL BUN 8 mg/dL (8-23) Not Available [facility] [address] [place], [address], 09/27/2022 18:29:53 09/28/19 23 09/27/2022 BASIC METAB OLIC PANEL creatinine 0.6 mg/dL (0.5-1 .0) Not Available [facility] [address] [place], [address], 09/27/2022 18:29:53 09/28/19 23 09/27/2022 BASIC METAB OLIC PANEL sodium 130 mmol/ L (133-1 45) low Not Available [facility] [address] [place], [address], 09/27/2022 18:29:53 09/28/19 23 09/27/2022 BASIC METAB OLIC PANEL potassium 5.0 mmol/ L (3.6-5 .2) Not Available [facility] [address] [place], [address], 09/27/2022 18:29:53 09/28/19 23 09/27/2022 BASIC METAB OLIC PANEL chloride 91 mmol/ L (98-10 7) low Not Available [facility] [address] [place], [address], 09/27/2022 18:29:53 09/28/19 23 09/27/2022 BASIC METAB OLIC PANEL bicarbonate 27 mmol/ L (22-29 ) Not Available [facility] [address] [place], [address], 09/27/2022 18:29:53 09/28/19 23 09/27/2022 BASIC METAB OLIC PANEL anion gap 12 (4-17) Not Available [facility] [address] [place], [address], 09/27/2022 18:29:53 09/28/19 23 09/27/2022 BASIC METAB OLIC PANEL calcium 10.4 mg/dL (8.6-1 0.5) Not Available [facility] [address] [place], [address], 09/27/2022 18:29:53 09/28/19 23 09/27/2022 BASIC METAB OLIC PANEL estimated GFR creatinine 102 mL/mi n/1.7 3_M2 Creat inine based estim ated glome rular filtr ation (eGFR ) in adult s is calcu lated using the Natio nal Kidne y Found ation recom emery d 2020 CKD-E PI equat ion. Estim ates GFR from serum creat inine , age and sex. Not Available [facility] [address] [place], [address], 09/27/2022 18:29:53 11/07/19 23 11/06/2022 BASIC METAB OLIC PANEL glucose 99 mg/dL (70-99 ) Not Available [facility] [address] [place], [address], 11/06/2022 21:36:59 11/07/19 23 11/06/2022 BASIC METAB OLIC PANEL BUN 7 mg/dL (8-23) low Not Available [facility] [address] [place], [address], 11/06/2022 21:36:59 11/07/19 23 11/06/2022 BASIC METAB OLIC PANEL creatinine 0.5 mg/dL (0.5-1 .0) Not Available [facility] [address] [place], [address], 11/06/2022 21:36:59 11/07/19 23 11/06/2022 BASIC METAB OLIC PANEL sodium 131 mmol/ L (133-1 45) low Not Available [facility] [address] [place], [address], 11/06/2022 21:36:59 11/07/19 23 11/06/2022 BASIC METAB OLIC PANEL potassium 4.5 mmol/ L (3.6-5 .2) Not Available [facility] [address] [place], [address], 11/06/2022 21:36:59 11/07/19 23 11/06/2022 BASIC METAB OLIC PANEL chloride 93 mmol/ L (98-10 7) low Not Available [facility] [address] [place], [address], 11/06/2022 21:36:59 11/07/19 23 11/06/2022 BASIC METAB OLIC PANEL bicarbonate 27 mmol/ L (22-29 ) Not Available [facility] [address] [place], [address], 11/06/2022 21:36:59 11/07/19 23 11/06/2022 BASIC METAB OLIC PANEL anion gap 11 (4-17) Not Available [facility] [address] [place], [address], 11/06/2022 21:36:59 11/07/19 23 11/06/2022 BASIC METAB OLIC PANEL calcium 10.2 mg/dL (8.6-1 0.5) Not Available [facility] [address] [place], [address], 11/06/2022 21:36:59 11/07/19 23 11/06/2022 BASIC METAB OLIC PANEL estimated GFR creatinine 104 mL/mi n/1.7 3_M2 Creat inine based estim ated glome rular filtr ation (eGFR ) in adult s is calcu lated using the Natio nal Kidne y Found ation recom emery d 2020 CKD-E PI equat ion. Estim ates GFR from serum creat inine , age and sex. Not Available [facility] [address] [place], [address], 11/06/2022 21:36:59 02/02/20 23 02/01/2023 LAB ONLY URINA LYSIS appear/color COLOR LESS CLEAR Not Available [facility] [address] [place], [address], 02/01/2023 20:11:29 02/02/20 23 02/01/2023 LAB ONLY URINA LYSIS sp. gravity 1.006 (1.002 -1.030 ) Not Available [facility] [address] [place], [address], 02/01/2023 20:11:29 02/02/20 23 02/01/2023 LAB ONLY URINA LYSIS urine pH 6.0 (5.0-8 .0) Not Available [facility] [address] [place], [address], 02/01/2023 20:11:29 02/02/20 23 02/01/2023 LAB ONLY URINA LYSIS urine albumin NEGATI VE (neg) Not Available [facility] [address] [place], [address], 02/01/2023 20:11:29 02/02/20 23 02/01/2023 LAB ONLY URINA LYSIS urine glucose NEGATI VE (neg) Not Available [facility] [address] [place], [address], 02/01/2023 20:11:29 02/02/20 23 02/01/2023 LAB ONLY URINA LYSIS urine ketones NEGATI VE (neg) Not Available [facility] [address] [place], [address], 02/01/2023 20:11:29 02/02/20 23 02/01/2023 LAB ONLY URINA LYSIS urine bilirubin NEGATI VE (neg) Not Available [facility] [address] [place], [address], 02/01/2023 20:11:29 02/02/20 23 02/01/2023 LAB ONLY URINA LYSIS urine hemoglobin NEGATI VE (neg) Not Available [facility] [address] [place], [address], 02/01/2023 20:11:29 02/02/20 23 02/01/2023 LAB ONLY URINA LYSIS urine nitrite NEGATI VE (neg) Not Available [facility] [address] [place], [address], 02/01/2023 20:11:29 02/02/20 23 02/01/2023 LAB ONLY URINA LYSIS urine leukocyte NEGATI VE (neg) Not Available [facility] [address] [place], [address], 02/01/2023 20:11:29 02/02/20 23 02/01/2023 LAB ONLY URINA LYSIS urobilinogen NORMAL mg/dL (norm) Not Available [facility] [address] [place], [address], 02/01/2023 20:11:29 02/02/20 23 02/01/2023 LAB ONLY URINA LYSIS urine WBCs NONE SEEN /hpf (0-5) Not Available [facility] [address] [place], [address], 02/01/2023 20:11:29 02/02/20 23 02/01/2023 LAB ONLY URINA LYSIS urine RBCs 1 /hpf (0-3) Not Available [facility] [address] [place], [address], 02/01/2023 20:11:29 02/02/20 23 02/01/2023 LAB ONLY URINA LYSIS squamous epith <1 /hpf (0-8) Not Available [facility] [address] [place], [address], 02/01/2023 20:11:29 02/02/20 23 02/01/2023 SODIU M, URINE MMOL/ L sodium, urine mmol/L 20 mmol/ L Not Available [facility] [address] [place], [address], 02/01/2023 20:21:00 02/02/20 23 02/01/2023 COMPR EHENS MARCELO METAB OLIC PANL glucose 92 mg/dL (70-99 ) Not Available [facility] [address] [place], [address], 02/01/2023 20:39:07 02/02/20 23 02/01/2023 COMPR EHENS MARCELO METAB OLIC PANL BUN 11 mg/dL (8-23) Not Available [facility] [address] [place], [address], 02/01/2023 20:39:07 02/02/20 23 02/01/2023 COMPR EHENS MARCELO METAB OLIC PANL creatinine 0.6 mg/dL (0.5-1 .0) Not Available [facility] [address] [place], [address], 02/01/2023 20:39:07 02/02/20 23 02/01/2023 COMPR EHENS MARCELO METAB OLIC PANL sodium 132 mmol/ L (133-1 45) low Not Available [facility] [address] [place], [address], 02/01/2023 20:39:07 02/02/20 23 02/01/2023 COMPR EHENS MARCELO METAB OLIC PANL potassium 4.2 mmol/ L (3.6-5 .2) Not Available [facility] [address] [place], [address], 02/01/2023 20:39:07 02/02/20 23 02/01/2023 COMPR EHENS MARCELO METAB OLIC PANL chloride 95 mmol/ L (98-10 7) low Not Available [facility] [address] [place], [address], 02/01/2023 20:39:07 02/02/20 23 02/01/2023 COMPR EHENS MARCELO METAB OLIC PANL bicarbonate 26 mmol/ L (22-29 ) Not Available [facility] [address] [place], [address], 02/01/2023 20:39:07 02/02/20 23 02/01/2023 COMPR EHENS MARCELO METAB OLIC PANL anion gap 11 (4-17) Not Available [facility] [address] [place], [address], 02/01/2023 20:39:07 02/02/20 23 02/01/2023 COMPR EHENS MARCELO METAB OLIC PANL albumin 5.0 gm/dL (3.4-4 .8) high Not Available [facility] [address] [place], [id number], 02/01/2023 20:39:07 02/02/20 23 02/01/2023 COMPR EHENS MARCELO METAB OLIC PANL calcium 9.7 mg/dL (8.6-1 0.5) Not Available [facility] [address] [place], [address], 02/01/2023 20:39:07 02/02/20 23 02/01/2023 COMPR EHENS MARCELO METAB OLIC PANL bilirubin,to tommy 0.5 mg/dL (0-1.2 ) Not Available [facility] [address] [place], [address], 02/01/2023 20:39:07 02/02/20 23 02/01/2023 COMPR EHENS MARCELO METAB OLIC PANL total protein 6.9 gm/dL (6.2-8 .2) Not Available [facility] [address] [place], [address], 02/01/2023 20:39:07 02/02/20 23 02/01/2023 COMPR EHENS MARCELO METAB OLIC PANL Ag ratio 2.6 Not Available [facility] [address] [place], [id number], 02/01/2023 20:39:07 02/02/20 23 02/01/2023 COMPR EHENS MARCELO METAB OLIC PANL AST 27 U/L (0-32) Not Available [facility] [address] [place], [id number], 02/01/2023 20:39:07 02/02/20 23 02/01/2023 COMPR EHENS MARCELO METAB OLIC PANL alk phos 57 U/L (35-10 4) Not Available [facility] [address] [place], [address], 02/01/2023 20:39:07 02/02/20 23 02/01/2023 COMPR EHENS MARCELO METAB OLIC PANL ALT 22 U/L (0-33) Not Available [facility] [address] [place], [address], 02/01/2023 20:39:07 02/02/20 23 02/01/2023 COMPR EHENS MARCELO METAB OLIC PANL estimated GFR creatinine 101 mL/mi n/1.7 3_M2 Creat inine based estim ated glome rular filtr ation (eGFR ) in adult s is calcu lated using the Natio nal Kidne y Found ation recom emery d 2020 CKD-E PI equat ion. Estim ates GFR from serum creat inine , age and sex. Not Available [facility] [address] [place], [address], 02/01/2023 20:39:07 02/02/20 23 02/01/2023 OSMOL ALITY , URINE RANDO M osmolality, urine random 146 mOsm/ kg (50-14 00) Not Available [facility] [address] [place], [address], 02/01/2023 20:40:47 02/02/20 23 02/01/2023 OSMOL ALITY , SERUM osmolality, serum 274 mos/k g (280-2 90) low Not Available [facility] [address] [place], [address], 02/01/2023 20:52:56 07/19/19 24 07/19/2023 LAB ONLY URINA LYSIS appear/color COLOR LESS CLEAR Not Available [facility] [address] [place], [address], 07/19/2023 16:43:14 07/19/19 24 07/19/2023 LAB ONLY URINA LYSIS sp. gravity 1.007 (1.002 -1.030 ) Not Available [facility] [address] [place], [id number], 07/19/2023 16:43:14 07/19/19 24 07/19/2023 LAB ONLY URINA LYSIS urine pH 7.0 (5.0-8 .0) Not Available [facility] [address] [place], [address], 07/19/2023 16:43:14 07/19/19 24 07/19/2023 LAB ONLY URINA LYSIS urine albumin NEGATI VE (neg) Not Available [facility] [address] [place], [address], 07/19/2023 16:43:14 07/19/19 24 07/19/2023 LAB ONLY URINA LYSIS urine glucose NEGATI VE (neg) Not Available [facility] [address] [place], [address], 07/19/2023 16:43:14 07/19/19 24 07/19/2023 LAB ONLY URINA LYSIS urine ketones NEGATI VE (neg) Not Available [facility] [address] [place], [address], 07/19/2023 16:43:14 07/19/19 24 07/19/2023 LAB ONLY URINA LYSIS urine bilirubin NEGATI VE (neg) Not Available [facility] [address] [place], [address], 07/19/2023 16:43:14 07/19/19 24 07/19/2023 LAB ONLY URINA LYSIS urine hemoglobin NEGATI VE (neg) Not Available [facility] [address] [place], [address], 07/19/2023 16:43:14 07/19/19 24 07/19/2023 LAB ONLY URINA LYSIS urine nitrite NEGATI VE (neg) Not Available [facility] [address] [place], [address], 07/19/2023 16:43:14 07/19/19 24 07/19/2023 LAB ONLY URINA LYSIS urine leukocyte NEGATI VE (neg) Not Available [facility] [address] [place], [address], 07/19/2023 16:43:14 07/19/19 24 07/19/2023 LAB ONLY URINA LYSIS urobilinogen NORMAL mg/dL (norm) Not Available [facility] [address] [place], [address], 07/19/2023 16:43:14 07/19/19 24 07/19/2023 LAB ONLY URINA LYSIS urine WBCs <1 /hpf (0-5) Not Available [facility] [address] [place], [address], 07/19/2023 16:43:14 07/19/19 24 07/19/2023 LAB ONLY URINA LYSIS urine RBCs <1 /hpf (0-3) Not Available [facility] [address] [place], [address], 07/19/2023 16:43:14 07/19/19 24 07/19/2023 LAB ONLY URINA LYSIS bacteria SLIGHT hpf (neg) abnormal Not Available [facility] [address] [place], [address], 07/19/2023 16:43:14 07/19/19 24 07/19/2023 BASIC METAB OLIC PANEL glucose 109 mg/dL (70-99 ) high Not Available [facility] [address] [place], [address], 07/19/2023 21:41:47 07/19/19 24 07/19/2023 BASIC METAB OLIC PANEL BUN 9 mg/dL (8-23) Not Available [facility] [address] [place], [address], 07/19/2023 21:41:47 07/19/19 24 07/19/2023 BASIC METAB OLIC PANEL creatinine 0.6 mg/dL (0.5-1 .0) Not Available [facility] [address] [place], [address], 07/19/2023 21:41:47 07/19/19 24 07/19/2023 BASIC METAB OLIC PANEL sodium 132 mmol/ L (133-1 45) low Not Available [facility] [address] [place], [address], 07/19/2023 21:41:47 07/19/19 24 07/19/2023 BASIC METAB OLIC PANEL potassium 5.7 mmol/ L (3.6-5 .2) high Not Available [facility] [address] [place], [address], 07/19/2023 21:41:47 07/19/19 24 07/19/2023 BASIC METAB OLIC PANEL chloride 94 mmol/ L (98-10 7) low Not Available [facility] [address] [place], [address], 07/19/2023 21:41:47 07/19/19 24 07/19/2023 BASIC METAB OLIC PANEL bicarbonate 28 mmol/ L (22-29 ) Not Available [facility] [address] [place], [address], 07/19/2023 21:41:47 07/19/19 24 07/19/2023 BASIC METAB OLIC PANEL anion gap 10 (4-17) Not Available [facility] [address] [place], [address], 07/19/2023 21:41:47 07/19/19 24 07/19/2023 BASIC METAB OLIC PANEL calcium 9.8 mg/dL (8.6-1 0.5) Not Available [facility] [address] [place], [address], 07/19/2023 21:41:47 07/19/19 24 07/19/2023 BASIC METAB OLIC PANEL estimated GFR creatinine 101 mL/mi n/1.7 3_M2 Creat inine based estim ated glome rular filtr ation (eGFR ) in adult s is calcu lated using the Natio nal Kidne y Found ation recom emery d 2020 CKD-E PI equat ion. Estim ates GFR from serum creat inine , age and sex. Not Available [facility] [address], [place], [address], 07/19/2023 21:41:47 05/16/20 23 05/16/2023 MAMMO , scree gisela, digit al, bilat eral PROCED URE: MM Digita l Mammo Screen ing INDICA TION: Screen ing. No known palpab le abnorm alitie s. COMPAR RORO: Dating back to 018 TECHNI QUE: Full-f ield digita l CC and MLO 3D tomosy nthesi s images of both breast s were acquir ed. Comput er-aid ed detect ion (CAD) was utiliz ed in the interp retati on of this study. DENSIT Y: The breast tissue is hetero geneou sly dense, which may obscur e masses . FINDIN GS: No suspic ious masses , suspic ious microc alcifi cation s, or areas of breanne ectura l distor tion are seen in either breast to sugges t malign destiny. IMPRES CHIRAG: No mammog raphic eviden ce of malign destiny. RECOMM ENDATI ON: Annual mammog raphic screen ing BI-RAD S: 1 (Negat marcelo) Lay letter mailed to walter dunbar WSN: [id number] Orderi ng Physic melonie: Torsten Cross Dictat ed By: Marisela MILLER, Fan Malik Dictat ed Date/T paul: 2:30 pm Review ed By: Fan Antonio MD Signed By: Fan Antonio MD Signed Date/T paul: 2:30 pm Transc ribed By: PARVIN Transc riptio n Date/T paul: 2:28 pm Birads : Walter dunbar Class: Outpat ient [facility] (Outpt Imaging) [address], [place], [address], 06/11/2023 10:21:15 05/16/20 23 05/16/2023 MAMMO , scree gisela, digit al, bilat eral No observ ation record ed. [facility] [address], [place], [address], 06/11/2023 10:21:15 07/17/19 25 07/17/2024 MAMMO , scree gisela, digit al, bilat eral PROCED URE: MM Digita l Mammo Screen ing INDICA TION: Screen ing. No known palpab le abnorm alitie s. COMPAR RORO: Prior mammog anne dating back to 019. TECHNI QUE: Full-f ield digita l CC and MLO 3D tomosy nthesi s images of both breast s were acquir ed. Comput er-aid ed detect ion (CAD) was utiliz ed in the interp retati on of this study. DENSIT Y: The breast tissue is hetero geneou sly dense, which may obscur e small masses . FINDIN GS: No suspic ious masses , suspic ious microc alcifi cation s, or areas of breanne ectura l distor tion are seen in either breast to sugges t malign destiny. IMPRES CHIRAG: No mammog raphic eviden ce of malign destiny. RECOMM ENDATI ON: Annual mammog raphic screen ing BI-RAD S: 1 (Negat marcelo) Lay letter mailed to walter dunbar WSN: [id number] Orderi ng Physic melonie: Torsten Cross Dictat ed By: Lisa huynh MD , Marilia Capellan Dictat ed Date/T paul: 4:53 pm Review ed By: Lisa huynh MD , Marilia Capellan Signed By: Lisa huynh MD , Marilia Capellan Signed Date/T paul: 4:53 pm Transc ribed By: PARVIN Transc riptio n Date/T paul: 4:52 pm Birads : Patien t Class: Outpat ient [id number] (Outpt Imaging) [address] , [place], [address], 07/20/2024 10:09:56 07/17/1907/17/2024 MAMMO , scree gisela, bilat eral No observ ation record ed. [email or web address] [facility] [address], [place], [address], 07/20/2024 10:11:26 Result Notes None recorded. Problems Name Problem SNOMED Code Status Onset Date Resolution Date Notes Provider Name and Address Organization Details Recorded Time Subconjun ctival hemorrhag e 97909369 Completed 10/17/2015 Torsten Groves MD [address], [place], [address], [facility] 6 11:58:09 Insomnia 094378275 Active Torsten Groves MD [address], [place], [address], [facility] 6 11:58:09 Acute pharyngit is 016373743 Completed 10/17/2015 Torsten Groves MD [address], [place], [address], [facility] 6 11:58:09 Viral disease 71350641 Completed 10/17/2015 Torsten Groves MD [address], [place], [address], [facility] 6 11:58:09 Mild anxiety 92392500 Active Torsten Groves MD [address], [place], [address], [facility] 6 12:13:59 Internal hemorrhoi ds 63304952 Active 2016 Torsten Groves MD [address], [place], [address], [facility] 7 15:04:29 Osteoarth ritis 410396351 Active 2016 severe right hand Torsten Groves MD [address], [place], [address], [facility] 7 18:20:43 Total bilirubin above reference range 09598785347 9108 Completed 202104/23/2022 Torsten Groves MD [address], [place], [address], [facility] 2 14:57:56 Essential hypertens ion 88496840 Active 2021 Torsten Groves MD [address], [place], [address], [facility] 2 15:13:42 Electroca rdiogram abnormal 345001620 Active 2021 Torsten Groves MD [address], [place], [address], [facility] 2 22:02:36 Body mass index 25-29 - overweigh t 095044446 Active 2021 Torsten Groves MD [address], [place], [address], [facility] 2 13:15:09 Lesion of liver 239638403 Active 2021 2.4cm right lobe cyst Torsten Groves MD [address], [place], [address], [facility] 2 14:56:32 Liver enzymes outside reference range 511619553 Completed 202101/27/2023 Torsten Groves MD [address], [place], [address], [facility] 3 14:23:16 Hyponatre deirdre 71429933 Completed 202210/10/2023 Torsten Groves MD [address], [place], [address], [facility] 4 14:23:32 Hyperchol esterolem ia 63061076 Active 2022 Torsten Groves MD [address], [place], [address], [facility] 3 12:44:52 Problem Notes None recorded. Procedures Surgical History Date Name Laterality Status Provider Name and Address Organization Details Recorded Time 5 Most Recent Mammogram completed Larissa Garcia [facility] 07/20/2024 10:09:54 3 Colonoscopy completed Torsten Groves MD [address] [address], [place], [address], [facility] 05/16/2023 07:19:48 9 Mammogram Screening completed Danae Daily [facility] 11/24/2018 10:28:48 6 Date of Last Pap Smear completed Torsten Groves MD [address] [facility] [address] [facility], [place], [address], [facility] 10/18/2015 12:08:03 2 Most Recent Bone Density completed Cyndee Smith [place] [facility] 10/17/2015 15:06:33 2 Dxa bone density study completed Cyndee Smith [place] [facility] 10/17/2015 15:06:34 0 Date of Last Colonoscopy completed Cyndee Smith [place] [facility] 12/03/2016 14:02:56 0 Caesarean Section completed [facility] 09/17/2014 13:11:51 7 Caesarean Section completed Cyndee Smith [place] [facility] 09/17/2014 13:11:51 Imaging Results Imaging Date Name Status LastModified by Organiz ation Details LastModified Time 05/16/2023 MAMMO, screening, digital, bilateral completed [facility] (Outpt Imaging) [address] [place], [address], 06/11/2023 10:21:15 05/16/2023 MAMMO, screening, digital, bilateral completed [facility] [address] [place], [address], 06/11/2023 10:21:15 07/17/2024 MAMMO, screening, digital, bilateral completed [address] (Outpt Imaging) [address] [place], [address], 07/20/2024 10:09:56 07/17/2024 MAMMO, screening, bilateral completed [address] [facility] [address] [place], [address], 07/20/2024 10:11:26 Procedure Notes None recorded. Medical Equipment None Reported. Allergies Allergen ID Allergen Name Allergen Category Reaction Reaction Severity Criticality Documentation Date Start Date Code Code System Note Provider Name and Address Organization Details Recorded Time 46161 losartan medicatio n Not available Not available high 07/21/2023 10146 RxNorm hyper kalem ia Torsten Groves MD [address] [facility] [address], [place], [address], [facility] 4 15:30:45 Medications Name Sig Start Date Stop Date Status Note LastModified by Organization Details LastModified Time carvedilo l 6.25 mg tablet TAKE 1 TABLET BY MOUTH TWICE A DAY WITH FOOD active Not Available Not Available No t Available benzonata te 200 mg capsule TAKE 1 CAPSULE BY MOUTH THREE TIMES A DAY NEEDED FOR 7 DAYS 11/08 completed Not Available Not Available Not Available diltiazem CD 240 mg capsule,e xtended release 24 hr TAKE 1 CAPSULE BY MOUTH EVERY DAY FOR 90 DAYS active Not Available Not Available No t Available venlafaxi ne 25 mg tablet TAKE 1/2 TABLET BY MOUTH DAILY FOR 2 WEEKS. IF NO EFFECT, INCREASE TO 1/2 TAB TWICE A DAY 03/20 completed Not Available Not Available Not Available prednison e 20 mg tablet TAKE 2 TABLETS EVERY DAY BY ORAL ROUTE WITH MEALS FOR 4 DAYS. 11/08 completed Not Available Not Available Not Available amlodipin e 5 mg tablet TAKE 1 TABLET BY MOUTH EVERY DAY 08/13 completed gingivit is Not Available Not Available Not Available valacyclo vir 500 mg tablet TAKE 1 TABLET BY MOUTH EVERY DAY 10/09 completed Not Available Not Available Not Available Tessalon Perles 100 mg capsule Take 1 capsule 3 times a day by oral route for 10 days. 2015 active Not Available Not Available Not Avai lable amoxicill in 875 mg tablet TAKE 1 TABLET BY MOUTH TWICE A DAY UNTIL FINISHED 03/11 completed Not Available Not Available Not Available lisinopri l 10 mg tablet Take 1 tablet every day by oral route for 30 days. 03/11 completed Not Available Not Available Not Available losartan 25 mg tablet TAKE 1 TABLET BY MOUTH EVERY DAY FOR 30 DAYS 07/21 completed hyperkal emia Not Available Not Available Not Available omeprazol e 20 mg capsule,d elayed release Take 1 capsule every day by oral route for 30 days. 11/08 completed Not Available Not Available Not Available diltiazem CD 120 mg capsule,e xtended release 24 hr TAKE 1 CAPSULE BY MOUTH EVERY DAY 2023 active Not Available Not Available Not Avai lable lorazepam 1 mg tablet TAKE 1 TABLET BY MOUTH UP TO 3 TIMES A DAY NEEDED FOR SEVERE ANXIETY. active Not Available Not Available No t Available lisinopri l 10 mg-hydroc hlorothia zide 12.5 mg tablet TAKE 1 TABLET BY MOUTH EVERY DAY 09/09 completed hyponatr emia Not Available Not Available Not Available zolpidem 10 mg tablet TAKE 1 TABLET BY MOUTH EVERY DAY IN THE EVENING active Not Available Not Available No t Available fluticaso ne propionat e 50 mcg/actua tion nasal spray,ashley pension SPRAY 1 SPRAY BY INTRANAS AL ROUTE TWICE A DAY DIRECTED 11/08 completed Not Available Not Available Not Available amoxicill in 875 mg-potass ium clavulana te 125 mg tablet TAKE 1 TABLET BY MOUTH EVERY 12 HOURS WITH MEALS FOR 10 DAYS 11/08 completed Not Available Not Available Not Available Readi-Cat 2 2.1 % (w/v), 2.0 % (w/w) oral suspensio n Take 450 mL twice a day by oral route as directed for 1 day. 04/26 completed Not Available Not Available Not Available multivita min 1 tab daily active Not Available Not Available No t Available Plenvu 140 gram-9 gram-5.2 gram powder packs SPLIT DOSE 1/2 DOSE DAY BEFORE 1/2 DOSE DAY OF PROCEDUR E (7HRS BEFORE PROCEDUR E) 06/11 completed Not Available Not Available Not Available Vitals Date Recorded Body height Body mass index (BMI) Body weight Heart rate Oxygen saturation Oxygen saturation in Arterial blood by Pulse oximetry Body temperature Systolic blood pressure Diastolic blood pressure Systolic blood pressure Diastolic blood pressure Provider Name and Address Organization Details Last Updated DateTime 3 154.94 cm 27 kg/m2 04524.7 1 g 72 /min 99 % 99 % 97.3 [degF] 148 mm[Hg] 83 mm[Hg] 140 mm[Hg] 80 mm[Hg] [facility] 3 14:35:05 Date Recorded Body height Body mass index (BMI) Body weight Heart rate Oxygen saturation Oxygen saturation in Arterial blood by Pulse oximetry Body temperature Systolic blood pressure Diastolic blood pressure Provider Name and Address Organization Details Last Updated DateTime 3 154.94 cm 26.5 kg/m2 18108.0 3 g 65 /min 97 % 97 % 96.5 [degF] 138 mm[Hg] 85 mm[Hg] [facility] 3 11:36:45 Date Recorded Body height Body mass index (BMI) Body weight Heart rate Oxygen saturation Oxygen saturation in Arterial blood by Pulse oximetry Body temperature Systolic blood pressure Diastolic blood pressure Provider Name and Address Organization Details Last Updated DateTime 3 154.94 cm 27 kg/m2 72548.7 1 g 71 /min 98 % 98 % 98.3 [degF] 156 mm[Hg] 83 mm[Hg] Marlen Mccurdy [place] [facility] 3 10:12:45 Date Recorded Body height Body mass index (BMI) Body weight Heart rate Oxygen saturation Oxygen saturation in Arterial blood by Pulse oximetry Body temperature Systolic blood pressure Diastolic blood pressure Systolic blood pressure Diastolic blood pressure Provider Name and Address Organization Details Last Updated DateTime 3 154.94 cm 26.5 kg/m2 09286.0 3 g 65 /min 96 % 96 % 98 [degF] 148 mm[Hg] 80 mm[Hg] 134 mm[Hg] 78 mm[Hg] Jes Efrain [facility] 3 10:26:17 Date Recorded Body height Body mass index (BMI) Body weight Heart rate Oxygen saturation Oxygen saturation in Arterial blood by Pulse oximetry Body temperature Systolic blood pressure Diastolic blood pressure Provider Name and Address Organization Details Last Updated DateTime 4 154.94 cm 26.7 kg/m2 55158.6 2 g 59 /min 98 % 98 % 98.5 [degF] 169 mm[Hg] 85 mm[Hg] [facility] 4 14:03:03 Date Recorded Systolic blood pressure Diastolic blood pressure Provider Name and Address Organization Details Last Updated DateTime 10/10/2023 136 mm[Hg] 86 mm[Hg] Torsten Groves MD [address] [address], [place], [address], [facility] 10/10/2023 14:35:18 Social History Question Answer Notes LastModified by Organizat ion Details LastModified Time Tobacco Smoking Status Never Smoker WOODY Rayo, [facility] 09/17/2014 13:11:41 Do You Have An Advance Directive? Yes Information not available 04/26/2022 What Is Your Level Of Alcohol Consumption? Occasional Information not available 09/17/2014 Animal Exposure? Yes Informat ion not available 04/26/2022 Do You Wear A Helmet When Biking? Yes Information not available 04/26/2022 Is Blood Transfusion Acceptable In An Emergency? Yes Information not available 09/17/2014 What Is Your Level Of Caffeine Consumption? Moderate 2 Daily Information not available 10/10/2023 How Much Tobacco Do You Chew? None Information not available 09/17/2014 Are You Currently Employed? Yes Information not available 09/17/2014 What Type Of Diet Are You Following? REGULAR Information not available 09/17/2014 Which Illicit Or Recreational Drugs Have You Used? 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 No Information not available 04/26/2022 How Many Days In The Past Year Have You Had A Heavy Drinking Consumption (4+ Female, 5+ Male)? 0 Information not available 09/17/2014 Are There Any Guns Present In Your Home? No Information not available 04/26/2022 What Is Your Home Situation? Relatives Information not available 04/26/2022 Legally Blind In One Or Both Eyes? No Information not available 04/26/2022 Live Alone Or With Others? With Others Fiancee (Vikas) And Dtr (Joan), 1 Cat Information not available 10/10/2023 Do You Take Precautions To Prevent Distracted Driving? Yes Information not available 10/17/2015 How Often Do You Need To Have Someone Help You When You Read Instructions, Pamphlets, Or Other Written Material From Your Doctor Or Pharmacy? Never Information not available 10/17/2015 Have You Served In The ? No Information not available 12/03/2016 Marital Status Informatio n not available 04/26/2022 Total Number Of Stairs In Home 12 Information not available 04/26/2022 How Many Children Do You Have? 3 Lizeth, Angelica Francoy Information not available 09/17/2014 Do You Use Protection During Sex? No Information not available 09/17/2014 Difficulty Reading? No Information not available 04/26/2022 What Is Your Relationship Status? Domestic Partner Vikas cat Information not available 08/13/2022 Seat Belts Used Routinely Yes Information not available 04/26/2022 Are You Sexually Active? Yes Information not available 09/17/2014 Smoke Alarm In Home Yes Information not available 04/26/2022 Are You Passively Exposed To Smoke? No Information not available 09/17/2014 Do You Use Any Illicit Or Recreational Drugs? No Information not available 04/26/2022 Do You Use Sunscreen Routinely? Yes Information not available 09/17/2014 Do You Or Have You Ever Used Any Other Forms Of Tobacco Or Nicotine? No Information not available 10/10/2023 Sex: Unknown Functional Status Question Answer Note LastModified by Organizat ion Details LastModified Time Do you have difficulty walking or climbing stairs? No Information not available 04/26/2022 Difficulty driving at night? No Information not available 04/26/2022 Are you able to walk? YESWOREST Information not available 08/13/2022 Are you able to care for yourself? Yes Information not available 09/17/2014 Do you have difficulty dressing or bathing? No Information not available 04/26/2022 What is your exercise level? Occasional walking Information not available 10/10/2023 Mental Status Question Answer Note LastModified by Organization D etails LastModified Time Do you have difficulty concentrating, remembering or making decisions? No Information no t available 04/26/2022 Family History Relationship Description Onset Age of this Age Resolved Age Notes LastModified by Organization Details LastModified Time Father Arthritis awychowski Not availa ble 10/17/2015 15:41:28 Father Diabetes mellitus 66 83 awychowski Not available 09/17 13:33:59 Father Heart disease 65 83 awychowski Not available 09/17 13:33:59 Brother Malignant neoplasm of urinary bladder Not available 2021 11:19:41 Sister Cerebral palsy Not available 2021 11:19:41 Mother Amyotrophic lateral sclerosis 87 Not available 2021 11:19:41 Daughter Malignant neoplastic disease psuedo tumor cerb Not available 04/26/2022 11:19:41 Daughter Benign intracranial hypertension Not available 11:19:41 Daughter Astrocytoma of brain Not available 2021 11:19:41 Daughter Glioma Not available 1 11:19:41 Daughter Well adult Not availab le 04/26/2022 11:19:41 Medical History Condition Response Gout N Other N Kidney Stones N Blood Diseases N Hyperthyroidism N Breast Cancer N Hypothyroidism N Lung Disease N Depression N COPD N Defects or Inherited Disease N Anesthesia Complications N Headaches/Migraines N Anxiety Disorder Y Varicose Veins N Muscle, Joint, or Bone Problems Y Obesity N Vision or Eye Problems N Arthritis N Head Injury/Concussion N Infertility N Polyps N Congenital Anomalies N Acid Reflux (GERD) N Cancer N Stroke N ADHD N Endometriosis N High Cholesterol N Liver Disease N Fibromyalgia N Kidney Disease N Heart Problems N Ear or Hearing Problems N Hospitalizations Y Thyroid Problems N GI Problems N Acne N Eating Disorder N Skin Problems N Anemia N Constipation N Bladder Problems N Mental Illness N Diabetes N Ovarian Cancer N Blood Transfusions N Seizures/Epilepsy N Tuberculosis N AIDS/HIV N Congestive Heart Failure (CHF) N Eczema N Abuse/Domestic Violence N Diverticulitis N Asthma N Allergies N Reflux/GERD N Hepatitis N Pulmonary Embolism N Hypertension N Chicken Pox N Autism Spectrum Disorder (ASD) N Osteoporosis N Gynecological History Statement/Question Response 09/16/2010 STIs/STDs N Age at Menarche 11 Current Control Method N/A Most Recent Mammogram 07/17/2024 Age at First Child 26 Date of Last Colonoscopy 08/16/2009 Most Recent Bone Density 10/31/2011 Sexually Active? Y Date of Last Pap Smear 07/22/2015 Sexual Problems? N Obstetrics History GPAL:G 0 P 0 0 0 0 Immunizations Vaccine Type Date Status Note Provider Nam e and Address Organization Details Recorded Time Influenza, high-dose, trivalent, PF 4 completed Not Available [facility] 06/11/2023 10:01:57 Influenza, split virus, quadrivalent, preservative 6 completed [facility] 12/03/2016 14:15:02 Tdap 7 completed Not Available [facility] 03/11/2023 10:04:07 Influenza, split virus, quadrivalent, PF 0 completed WOODY [facility] 03/20/2022 14:19:58 Influenza, high-dose, trivalent, PF 4 completed [facility] 03/20/2022 14:19:58 COVID-19, mRNA, LNP-S, PF, 100 mcg/0.5mL dose or 50 mcg/0.25mL dose 1 completed WOODY [facility] 03/20/2022 14:19:58 COVID-19, mRNA, LNP-S, PF, 100 mcg/0.5mL dose or 50 mcg/0.25mL dose 0 completed WOODY [facility] 03/20/2022 14:19:58 Influenza, MDCK, quadrivalent, PF 8 completed WOODY [facility] 03/20/2022 14:19:58 Influenza, split virus, quadrivalent, PF 1 completed WO[facility] 03/20/2022 14:19:58 COVID-19, mRNA, LNP-S, PF, 100 mcg/0.5mL dose or 50 mcg/0.25mL dose 2 completed WOODY [facility] 03/20/2022 14:19:58 Influenza, split virus, quadrivalent, PF 7 completed WOODY [facility] 03/20/2022 14:19:58 Influenza, split virus, quadrivalent, PF 2 completed WO[place] [facility] 08/13/2022 14:30:14 Past Encounters Encounter ID Performer Location Encounter Start Date Encounter Closed Date Diagnosis/Indication Diagnosis SNOMED-CT Code Diagnosis ICD10 Code Diagnosis Note [id number] Cyndee Smith [place] Main Office [address] [address] 09/17/2014 12:41:28 09/17/2014 13:54:31 Adult health examination [id number] Immunizati on status utd per pt via her employer (works at [employer]). Will screen based on risk factors. Reports recent breast, cervical and colon cancer screening, will track down those records. Regular dental and ophtho care advised as well as seatbelt and sunscreen use. Distracted driving discussed. Advance directives in place. Family his tory of ischemic heart disease [id number] Subconjunc tival hemorrhage [id number] Has already seen optho. Will check CBC to rule out thrombocyt openia and also to assess her history of anemia. Insomnia [id number] Follo wed and managed by Dr Robles. [id number] Torsten Groves MD Main Office [address] [address] 09/28/2015 10:02:35 09/28/2015 10:54:23 Acute pharyngitis 137923092 J02.9 Viral disease 87329610 B 34.9 [id number] Torsten Groves MD Main Office [address] [address] 10/17/2015 14:51:12 10/17/2015 16:03:57 Adult health examination 398840951 Z00.00 Immunizati on status utd per pt via her employer (works at [employer]). Screening utd based on risk factors. Breast and cervical cancer screening are utd. Colon cancer screening utd per pt report. Regular dental and ophtho care advised as well as seat belt and sunscreen use. Distracted driving discussed. Advance directives in place. Mild anxiety 73408424 F4 1.8 Overall coping well at this time in spite of personal stressors. Following with psych. [id number] Torsten Groves MD Main Office [address] [facility] [address] [facility] [place] [address] 12/03/2016 14:07:24 12/03/2016 15:26:10 Adult health examination 383647535 Z00.01 Immunizati on status utd per pt via her employer (works at [employer]). Asked to bring in copy of records for chart here. Screening utd based on risk factors. Breast and cervical cancer screening are utd. Colon cancer screening utd. Regular dental and ophtho care advised as well as seat belt and sunscreen use. Distracted driving discussed. Advance directives in place. [facility] node [id number] M15.1 Will image to look for extensive arthritic disease and consult rheum to rule out osteo vs inflammato ry arthritis. Neck pain 10567769 M54.2 Persistent for more than 2 weeks. Will ask physiatry for further advice. Pt advised to pursue this via workers compensati on if appropriat e. [id number] Torsten Groves MD Main Office [address] [place] [address] 03/20/2022 14:12:07 03/20/2022 16:10:10 Essential hypertension 63157764 I10 New diagnosis but very severe. Subtle evidence for hypertensi ve urgency but ECG non overly concerning . No current evidence for end organ damage. If proteinuri a present on UA will refer to ED. Advised to go herself with any chest pain, leg edema or SOB. Will start CCB and titrate as tolerated. Common/ser ious potential side effects discussed. Reassess control in 1 week. Abdominal pain 16969328 R10.9 Possible gastritis vs pancreatit is. Will evaluate further based on lab results. Total bili hutson above reference range [id number] 84063 R17 Elevated LFT's in context of daily ETOH use raised concern for cirrhosis. Will refer for imaging to elaborate further. Body mass index 25-29 - overweight 886898537 E66.3 Z68.28 Alcohol dependence 62491 003 F10.20 Advised to slowly try and reduce daily use volume. Already on lorazepma via psych. [id number] Torsten Groves MD Main Office 36[address] [facility] [address] [place] [address] 03/29/2022 12:35:14 03/29/2022 13:25:03 Essential hypertension 08797884 I10 Excellent response to amlodipine . SBP not ideal but reasonably controlled . WIll resssess in 3-4 weeks and either add diuretic or titrate amlodidine further. Closed fra cture of fifth metatarsal bone 53905560 S92.355D Has appt with [facility] tomorrow. Liver enzy mes level above reference range 868324300 R74.01 CT has been ordered. Will see what's holding up the scheduling . [id number] Gamaliel Hughes PA-C Main Office 36[address] [facility] [address] [place] [address] 04/26/2022 11:19:10 04/26/2022 12:13:32 Essential hypertension 09443094 I10 bp stable, cont meds as dir pt has been oown since seen at ER ~ 5 wks ago -- signed form c rtw on 05.08.22 Lesion of liver 42568122 0 K76.[address] liver cyst on recent CT - reviewed c pt as well as recent labs - pending gi eval Liver enzy mes outside reference range 692003866 R94.5 see above, pending gi - will help eval c checking hep a/b/c pt states ac last labs last month had a fair amount of etoh on vacation x 2-3 wks at [place] in [facility] -- recently more typically has 2 drinks on sat & 2 on sun Thrombocyt openic disorder 918554701 D69.6 will recheck cbc since platelets clumped last month Impaired f asting glycemia 238384622 R73.01 [id number] Torsten Groves MD Main Office [address] [facility] [address] [place] [address] 08/13/2022 14:12:20 08/13/2022 15:02:17 Adult health examination 349368029 Z00.00 Bivalent COVID 19 vaccinatio n ans Shingrix advised via local pharmacy. Will screen based on risk factors. Breast and cervical cancer screening are utd. Colon cancer screening overdue. Regular dental and ophtho care advised as well as seat belt and sunscreen use. Distracted driving discussed. Advance directives in place. Screening for malignant neoplasm of colon 042236656 Z12.11 Has appt with GI in September Lesion of liver 83276491 0 K76.9 Liver enzy mes outside reference range 395230374 R94.5 Will reassess with reduced ETOH use. Essential hypertension 47840999 I10 Excellent response to amlodipine , but having gingivitis since starting it and would like to try another agent. Now that we have lab results will try ACEI/diure tic combo and check labs 2-3 weeks after starting. Mild anxiety 22094180 F4 1.8 Overall coping well at this time in spite of personal stressors. Following with psych. Body mass index 25-29 - overweight 903155950 E66.3 Z68.27 Varicella vaccination 68 689708 Z23 [id number] Torsten Groves MD Main Office [address] [place] [address] 11/08/2022 11:28:27 11/08/2022 12:08:25 Essential hypertension 69875594 I10 Had an excellent response to amlodipine , but had gingivitis . Looks like ACEI/diure tic were affording low NA. Will see if non dihydropyr idine is better tolerated. D/c lisinopril and recheck labs 2-3 weeks after starting. Hyponatremia 65067287 E8 7.1 Will check SIADH labs. Hypercholesterolemia 136 49690 E78.00 Based on current CVD risk score will focus on TLC. [id number] Torsten Groves MD Main Office 36[address] [facility] [address] [facility] [place] [address] 03/11/2023 10:01:14 03/11/2023 10:51:11 Essential hypertension 90234527 I10 Had an excellent response to amlodipine , but had gingivitis . ACEI/diure tic were thought to be affording low NA. Non dihydropyr idine is better tolerated will titrate dose. Hyponatremia 27342436 E8 7.1 Mild and almost normal. No obvious medication contributo rs. Will try reducing free water intake and monitor. [id number] Torsten Groves MD Main Office [address] [place] [address] 06/11/2023 09:58:54 06/11/2023 10:26:42 Hypercholesterolemia 13049770 E78.00 Based on current CVD risk score will focus on TLC. Essential hypertension 47050781 I10 Had an excellent response to amlodipine , but had gingivitis which recurred with higher dose of diltiazem. ACEI/diure tic were thought to be affording low NA. See if low dose ARB is better tolerated. [id number] Torsten Groves MD Main Office [address]40 [facility] [address] [facility] [place] [address] 10/10/2023 13:39:14 10/10/2023 14:43:41 Adult health examination 068814524 Z00.00 COVID 19, PCV20, and Shingrix immunizati ons advised via local pharmacy. Will screen based on risk factors. Breast, colon and cervical cancer screening are utd. Colon cancer screening overdue. Regular dental and ophtho care advised as well as seat belt and sunscreen use. Distracted driving discussed. Advance directives in place. Screening for malignant neoplasm of breast 876495885 Z12.39 Body mass index 25-29 - overweight 140975990 E66.3 Z68.26 Essential hypertension 62044281 I10 Finally well controlled with the help of nephrology . Dr. Joseph is following for now. I will assume prescribin g/mgmt when he signs off. Hypercholesterolemia 136 51532 E78.00 Based on current CVD risk score will focus on TLC. Varicella vaccination 68 853926 Z23 Administra tion of pneumococcal vaccine 48364302 Z23 Health Concerns Section Related Observation LastModified by Organization Detai ls LastModified Time None Recorded Concern Status LastModified by Organization Details LastModified Time None Recorded Advance Directives Directive Y: Payers Encounter Date Sequence Insurance Name Policy Number Policy Marsh Covered Member ID Marsh Member ID Guarantor Name 08/13/2022 1 [facility] [id number] Jing Jaramillo [facility] [id number] Jing Jaramillo [facility] 11/08/2022 1 [facility] ([facility] [id number] Jing Jaramillo [facility] [id number] Jing Jaramillo [facility] 03/11/2023 1 [facility] ([facility] [id number] Jing Jaramillo [facility] [id number] Jing Jaramillo [facility] 06/11/2023 1 [facility] (O) [id number] Jing Jaramillo [facility] [id number] Jing Jaramillo [facility] 10/10/2023 1 [facility] ([facility]) [id number] Jing Jaramillo [facility] [id number] Jing Jaramillo [facility] Notes Date Note Type Note Provider Name and Address Organization Details Recorded Time 3 text/html Generic HPI TemplateReported bypatient.Notes:Here for physical. Having neck pain and hand swelling. Seeing dentist and ophtho regularly. Torsten Groves MD [address] [facility] [address], [place], [address], [facility] 08/13/2022 15:10:31 3 text/html HyperlipidemiaReported bypatient.Type of hyperlipidemia:hypercholest erolemia Control:not at goal Current Therapy:last cholesterol level: (207); last LDL level: (116); last triglyceride level: (85); last HDL level: (74) Compliance:compliant; compliant with diet; exercises Complications:no coronary artery disease; no peripheral artery disease; no cardiovascular disease Risk Factors:hypertensionHyperte nsion F/UReported bypatient.Associated Symptoms:no dizziness; no lightheadedness; no chest pain; no shortness of breath; no palpitations; no edema; no calf pain with exertion Lifestyle:limiting/avoiding salt;not exercising regularly Medications:taking medications as directed; no side effects from medicationNotes:Amlodipine afforded gingival issues, switched to MILA/HCTZ but developed low NA so HCTZ stopped but Na is still low. Denies excessive H2O intake. Has not has SIADH labs done. Torsten Groves MD [address] [facility] [address], [place], [address], [facility] 11/08/2022 12:45:39 3 text/html HyperlipidemiaReported bypatient.Type of hyperlipidemia:hypercholest erolemia Control:not at goal Current Therapy:last cholesterol level: (207); last LDL level: (116); last triglyceride level: (85); last HDL level: (74) Compliance:compliant; compliant with diet; exercises Complications:no coronary artery disease; no peripheral artery disease; no cardiovascular disease Risk Factors:hypertensionNotes:C VD risk up to 8.8% today.Hypertension F/UReported bypatient.Associated Symptoms:no dizziness; no lightheadedness; no chest pain; no shortness of breath; no palpitations; no edema; no calf pain with exertion Lifestyle:limiting/avoiding salt;not exercising regularly Medications:taking medications as directed; no side effects from medication; checks blood pressure at home, range: (135/70)Notes:Amlodipine afforded gingival issues, switched to MILA/HCTZ but developed low NA so stopped. Started on diltiazem at last visit but Na is still a little low. Denies excessive H2O intake. Urine is dilute with Na level of 20. Kidney on CT last Fall were normal. Torsten Groves MD [address], [address], [facility] 03/11/2023 11:03:30 3 text/html HyperlipidemiaReported bypatient.Type of hyperlipidemia:hypercholest erolemia Control:not at goal Current Therapy:last cholesterol level: (207); last LDL level: (116); last triglyceride level: (85); last HDL level: (74) Compliance:compliant; compliant with diet; exercises Complications:no coronary artery disease; no peripheral artery disease; no cardiovascular disease Risk Factors:hypertensionNotes:C VD risk at 6.5% today.Hypertension F/UReported bypatient.Associated Symptoms:no dizziness; no lightheadedness; no chest pain; no shortness of breath; no palpitations; no edema; no calf pain with exertion Lifestyle:limiting/avoiding salt;not exercising regularly Medications:taking medications as directed; no side effects from medication; checks blood pressure at home, range: (135/70)Notes:Amlodipine afforded gingival issues, switched to MILA/HCTZ but developed low NA so stopped. Started on diltiazem at last visit but Na is still a little low. Denies excessive H2O intake. Urine is dilute with Na level of 20. Kidney on CT last Fall were normal. Torsten Groves MD [address] [facility] [address], [place], [address], [facility] 06/28/2023 06:35:27 4 text/html Generic HPI TemplateReported bypatient.Notes:Here for physical. Having neck pain and hand swelling. Seeing dentist and ophtho regularly. Torsten Groves MD [address] [facility] [address], [place], [address], [facility] 10/10/2023 14:48:40 OBGyn Episode No OBEpisode recorded.
== END 2024-08-12 11:44 | disposition home or self-care (01) ==
LOC: HO.LAB 11:43
PROVIDERS: Visit Provider Internal Medicine Nephrology
DX: E87.1 Hypo-osmolality and hyponatremia (principal); I10 Essential (primary) hypertension
CPT/HCPCS: 36415; 80051; 82565; 84520

== ENCOUNTER 2024-08-19 11:11 | Outpatient (AMB) | payer MEDICARE, SELFPAY ==
--- NOTE | 2024-08-19 11:20 | HO.NEPHOV ---
Vital Signs 08/19/24 11:38 Height 5 ft 1 in Weight 133 lb 4 oz BMI 25.2 BP 130/80 Blood Pressure Location Lt brachial Position Sitting Pulse 54 Pulse Source Pulse Oximeter Pulse Oximetry (%) 98 Oxygen Delivery Method Room Air Intake Visit Reasons: Hypertension-Conf [employer]oe [employer] Molder Required: No Accompanied by: Self / Same As Patient Allergies No Known Allergies Allergy (Verified 08/19/24 11:38) HPI Comments Details: Jing was seen in follow up for history of hyponatremia and hypertension. Patient states that she used to take Ativan, for anxiety as on a needed basis. She was started on amlodipine in the past for blood pressure but was causing gingival issues and it was discontinued. Subsequently she was started on MILA inhibitor/hydrochlorothiazide which has been changed due to hyponatremia. Currently she is not on any diuretics. Patient denies any dizziness, lightheadedness, vomiting, fever, chills, blurry vision, double vision, loss of vision, chest pain, difficulty breathing, shortness of breath, back pain, night sweats, pain with urination, increased urinary frequency, increased urinary urgency, blood in her urine or stool, syncope or a near syncopal episode, recent trauma or falls, bowel incontinence, bladder incontinence, bowel retention, bladder retention, or any other complaints at this time. She has no weight loss, hemoptysis or any history of malignancy. She has not known to have any thyroid dysfunction, history of hyperkalemia, excessive free water intake, heart failure, paraproteinemia. She claims to be compliant with her medications. Her renal functions are normal. Her serum K went up and her ARB had been discontinued. She now is on Carvedilol bid & diltiazem in the noon time. This is keeping her BP at goal. [facility] Medical History (Updated 12/25/23 @ 11:36 by Rita Mullins PA-C) Mild anxiety Insomnia Internal hemorrhoids Osteoarthritis Lesion of liver Hyperkalemia Hyponatremia Hypercholesterolemia Essential (primary) hypertension Surgical History H/O section H/O colonoscopy Family History Father Arthritis Diabetes Heart disease Brother Malignant tumor of urinary bladder Sister Cerebral palsy Mother Amyotrophic lateral sclerosis Social History Alcohol intake: current Comment: Occasional Patient Tobacco Use Status: Never used Tobacco Review of Systems Const All systems reviewed & are unremarkable except as noted in HPI and below Physical Exam Vital Signs: Last Vital Signs Pulse 54 08/19/24 11:38 BP 130/80 08/19/24 11:38 Pulse Ox 98 08/19/24 11:38 Oxygen Delivery Method Room Air 08/19/24 11:38 BMI result Body Mass Index 25.2 Const General: comfortable and no acute distress Orientation/consciousness: patient oriented x3 HEENT Head: Yes normocephalic Mouth: Normal oral and palatal mucosa present Eyes EOM: EOMs intact bilaterally Neck Neck: Yes supple Resp Auscultation: clear to auscultation bilaterally Cardio Jugular venous distension: no JVD Rate: regular rate GI Palpation (GI): Soft to palpation Auscultation: normal bowel sounds General: Yes no CVA tenderness Back/Spine/Pelvis Back: no CVA tenderness Skin General skin exam: no rashes or lesions noted Neuro General: patient oriented x3 and moves all extremities Extrem General: Yes no pedal edema Results Reviewed Nephrology Results: Sodium 130 mmol/L (135-145) L 08/12/24 Potassium 4.1 mmol/L (3.3-5.1) 08/12/24 Chloride 94 mmol/L (96-108) L 08/12/24 Carbon Dioxide 25 mmol/L (22-29) 08/12/24 BUN 5 mg/dL (9-16) L 08/12/24 Creatinine 0.61 mg/dL (0.5-1.4) 08/12/24 Calcium 9.7 mg/dL (8.4-10.2) 03/19/22 Assessment & Plan Assessment & Plan (1) Hypertension: Code(s): I10 - Essential (primary) hypertension Category: Medical Qualifiers: Hypertension type: primary hypertension Qualified Code(s): I10 - Essential (primary) hypertension (2) Hyponatremia: Code(s): E87.1 - Hypo-osmolality and hyponatremia Category: Medical Plan Jing most likely has mild excess ADH. She does not have any mentation changes or weakness. She was euvolemic. Her last serum sodium was 130. She had been on hydrochlorothiazide which had been discontinued. Her cortisol, serum immunofixation, urine sodium, serum and urine osmolality along with uric acid were reviewed. Her losartan was discontinued in the past when her serum K went up to 5.7. She is on diltiazem. 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 ( gingival issues at 240 mg but not now). She can continue carvedilol 6.25 mg twice daily and Diltiazem 120 mg in the afternoon. Labs ordered for F/U. All questions answered. Orders: Orders Creatinine 6 Months E87.1 - Hypo-osmolality and hyponatremia, I10 - Essential (primary) hypertension Blood Urea Nitrogen 6 Months E87.1 - Hypo-osmolality and hyponatremia, I10 - Essential (primary) hypertension Electrolytes 6 Months E87.1 - Hypo-osmolality and hyponatremia, I10 - Essential (primary) hypertension Coding Level of Care Code Est Pt Level 4 (98089) Diagnoses Primary hypertension I10 Hypertension type: primary hypertension Hyponatremia E87.1
[2024-08-19 11:38] VITALS: BP 130/80; PULSE 54; O2SAT 98; BMI 25.2
--- OUTSIDE RECORDS SUMMARY | 2024-08-19 12:33 | XMS_ITS | Data Portability ---
Author Organization KRISHAN Melchor s, [address] Address [address] [place] [id number] Assessment No assessment recorded. Plan of Treatment Reminders Order Date Submit Date Provider Last Modified By Organization Details Last Modified Time Details Appointments None recorded. Lab None recorded. Referral None recorded. Procedures None recorded. Surgeries None recorded. Imaging None recorded. Medication Orders prednisone [address] [id number], [address] [place], [address], 16:59:17 Allergy Relief (fluticason e) 50 mcg/actuati on nasal spray,suspe nsion [address] [id number], [address] [place], [address], 3 16:59:17 amoxicillin 875 mg-potassiu m clavulanate 125 mg tablet [address] [id number], [address] [place], [address], 3 16:59:16 benzonatate 200 [address] capsule [address] [id number], [address] [place], [address], 3 16:59:16 Patient TargetsNo targets recorded. Patient Instructions Encounter Date Encounter Id Patient Instructions Last Modified By Organization Details Last Modified Time 09/15/2022 [id number] cough: care instructions Not available 09/15/2022 16:59:12 [...] care for yourself at home? Take an bicq-yuq-mxackby pain medicine. Avoid Ibuprofen, Aleve and Aspirin if . If the doctor prescribed antibiotics, take them as directed. Do not stop taking them just because you feel better. You need to take the full course of antibiotics. Be careful when taking inst-yri-htnnzkx cold or influenza (flu) medicines and Tylenol [...] Address Organization Details Recorded Time Essential hypertension 60843708 Active 2022 CRISTHIAN bullock, [place] - [facility] 3 16:11:08 Insomnia 609764903 Active 2022 CRISTHIAN De Leon null, [place] - [facility] 3 16:11:13 Anxiety 98602764 Active 2022 C[facility]HIAN [facility]ock, [facility] - [facility] [...] Not Available No t Available amoxicillin 875 mg-portia paredes clavulanate 125 mg tablet Take 1 tablet every 12 hours by oral route with meals for 10 days. 2022 active Not Available Not Available Not Buddy labdahiana Vitals Date Recorded Body height Body mass index (BMI) Body weight Body temperature Respiratory rate Heart rate Oxygen saturation Oxygen saturation in Arterial blood by Pulse oximetry Systolic blood pressure Diastolic blood pressure Provider Name and Address Organization Details Last Updated DateTime 3 154.94 cm 25.5 kg/m2 57750.9 7 g 98.1 [degF] 18 /min 62 /min 99 % 99 % 150 mm[Hg] 83 mm[Hg] CRISTHIAN De Leon PA - [facility] 16:13:44 Social History Question Answer Notes LastModified [...] SNOMED-CT Code Diagnosis ICD10 Code Diagnosis Note [id number] [place] [address] 06/29/2019 14:51:30 06/29/2019 15:16:02 [id number] Ezequiel Burnette NP [address] [place] [address] 09/15/2022 15:17:12 09/15/2022 17:09:10 Acute sinusitis 14663452 J01.90 Health Concerns Section Related Observation LastModified by Organization Detai ls LastModified Time None Recorded Concern Status LastModified by Organization Details LastModified Time None Recorded Advance Directives Directive None Recorded Payers Encounter Date Sequence Insurance Name Policy Number Policy Marsh Covered Member ID Marsh Member ID Guarantor Name 06/29/2019 1 [facility] [id number] 4 [facility] [id number] [facility] 09/15/[address] [place] [address] [id number] Jing B [facility] [id number] [facility] Notes Date Note Type Note Provider Name and Address Organization Details Recorded Time 09/15/2022 text/html CongestionReport ed bypatient.Notes:nasal congestion with post nasal drip x 2 weeks. denies any fever or fever with chills. no SOB or respiratory distress. Ezequiel Burnette NP [address] [place], [address], [place] - [facility] 09/15/2022 16:59:30 OBGyn Episode No OBEpisode recorded.
--- OUTSIDE RECORDS SUMMARY | 2024-08-19 12:33 | XMS_ITS | Data Portability ---
Author Organization [facility], Main Office Address [address] [facility] [address] [place] [address] Care Team Providers Care Blocker And Sewer Name Role Phone TORSTEN GROVES Primary Care Provider [phone] ADRIAN ISABEL Psychiatrist CHRIS NIÑO Orthopedic Surgeon BRAEDEN LONG Virtual Office Assistant [phone] MIC JOSEPH Filter Changer HELEN CANELA Chief Scientist Assessment No assessment recorded. Plan of Treatment Reminders Order Date Submit Date Provider Last Modified By Organization Details Last Modified Time Details Appointments FOLLOW UP 2024 10:00A M Torsten Groves MD Not available Not available Not available Lab CMP, serum or plasma 2022 023 [facility] [address] [place], [address], 09/07/2022 16:50:27 lipid panel, serum 2022 023 [facility] [address] [place], [address], 09/07/2022 16:50:29 gamma- glutam yl transf erase (ggt), serum 2022 023 [place] [facility], [address] [place], [address], 09/07/2022 16:50:28 CBC w/ auto diff 2022 023 [facility], [address] [place], [address], 09/07/2022 17:10:26 osmola lity, serum 2022 023 [facility], [address] [place], [address], 02/01/2023 20:52:57 sodium , urine 2022 023 [place] [facility], [address] [place], [address], 02/01/2023 20:21:00 osmola lity, urine 2022 023 [facility], [address] [place], [address], 02/01/2023 20:40:47 urinal ysis, comple te 2022 023 [facility], [address] [place], [address], 02/01/2023 20:11:29 CMP, serum or plasma 2022 023 [facility], [address] [place], [address], 02/01/2023 20:39:07 BMP, serum or plasma 2022 023 [facility], [address] [place], [address], 07/19/2023 21:41:47 urinal ysis, comple te 2022 023 [facility], [address] [place], [address], 07/19/2023 16:43:14 CMP, serum or plasma [facility] [address], [address], [place], [address], 05/09/2024 08:40:24 lipid panel, serum 2023 024 [facility], [address] [facility], [facility] [address], [place], [address], 05/09/2024 08:40:24 Referral nutrit ionist /dieti marlyn referr al 2022 023 Not available 08/13/2022 16:58:47 nutrit ionist /nicai marlyn referr al 2023 024 [email or web address] Not available 10/10/2023 14:49:30 Procedures colono scopy screen ing (PROC) 2022 023 Not available 08/13/2022 16:58:25 Surgeries None record ed. Imaging MAMMO, screen ing, bilate ral - Perfor m Diagno stic Mammog madina and Breast Ultras ound if needed / Perfor m Ultras ound Guided Aspira tion and/or Breast Biopsy if warran stacie 2023 024 [facility], [address] [facility], [place], [address], 07/17/2024 16:58:44 Medication Orders lisino pril 10 mg-hyd rochlo rothia zide 12.5 mg tablet 2022 023 [facility]armacy [facility][id number], [address] [place], [address], 09/09/2022 21:54:09 diltia zem CD 120 mg capsul e,exte nded releas e 24 hr 2022 023 frankie [facility]/Pharmacy #[id number], [address] [place], [address], 06/11/2023 10:11:42 diltia zem CD 240 mg capsul e,exte nded releas e 24 hr 2022 023 [facility]/Pharmacy #[id number], [address] [place], [address], 04/26/2023 14:02:11 losart an 25 mg tablet 2022 023 cat [facility]/Pharmacy #[id number], [address] [place], [address], 07/21/2023 15:28:42 Patient TargetsNo targets recorded. Patient Instructions Encounter Date Encounter Id Patient Instructions Last Modified By Organization Details Last Modified Time 08/13/2022 [id number] When You Want to Lose Weight: Care Instructions [email or web address] Not available 08/13/2022 14:55:47 Nutrition Referral and Weight Management Follow-up Information [email or web address] Not available 08/13/2022 14:55:47 high blood pressure: care instructions awychowski Not available 08/13/2022 14:55:46 learning about high blood pressure awychowski Not available 08/13/2022 14:55:47 11/08/2022 [id number] electrolyte imbalance: care instructions awychowski Not available 11/08/2022 12:05:54 hyponatremia: care instructions awychowski Not available 11/08/2022 12:05:54 high blood pressure: care instructions awychowski Not available 11/08/2022 12:05:54 learning about high blood pressure awychowski Not available 11/08/2022 12:05:54 03/11/2023 [id number] electrolyte imbalance: care instructions awychowski Not available 03/11/2023 11:03:14 hyponatremia: care instructions awychowski Not available 03/11/2023 11:03:14 high blood pressure: care instructions awychowski Not available 03/11/2023 11:03:14 learning about high blood pressure awychowski Not available 03/11/2023 11:03:15 06/11/2023 [id number] high blood pressure: care instructions awychowski Not available 06/11/2023 10:23:03 learning about high blood pressure awychowski Not available 06/11/2023 10:23:03 10/10/2023 [id number] high blood pressure: care instructions awychowski Not available 10/10/2023 14:38:25 learning about high blood pressure awychowski Not available 10/10/2023 14:38:25 learning about healthy weight awychowski Not available 10/10/2023 14:38:25 When You Want to Lose Weight: Care Instructions awychowski Not available 10/10/2023 14:38:25 Nutrition Referral and Weight Management Follow-up Information awychowski Not available 10/10/2023 14:38:24 Reason for Referral Skin Care Specialist/dietitian Refer ral for Body mass index 25-29 - overweight Referring Physician: Torsten Groves [facility], Encounter Date: 08/13/2022 Skin Care Specialist/dietitian Refer ral for Body mass index 25-29 - overweight Referring Physician: Family Tyrel Blanco, Encounter Date: 10/10/2023 Results Created Date Observation Date Name Description Value Unit Range Abnormal Flag Note LastModifiedBy Organization Detail LastModifiedTime 09/07/19 23 09/07/2022 COMPR EHENS MARCELO METAB OLIC PANL glucose 93 mg/dL (70-99 ) Not Available [facility] [address] [place], [address], 09/07/2022 16:50:27 09/07/19 23 09/07/2022 COMPR EHENS MARCELO METAB OLIC PANL BUN 7 mg/dL (8-23) low Not Available [facility] [address] [place], [address], 09/07/2022 16:50:27 09/07/19 23 09/07/2022 COMPR EHENS MARCELO METAB OLIC PANL creatinine 0.5 mg/dL (0.5-1 .0) Not Available [facility] [address] [place], [address], 09/07/2022 16:50:27 09/07/19 23 09/07/2022 COMPR EHENS MARCELO METAB OLIC PANL sodium 127 mmol/ L (133-1 45) low Not Available [facility] [address] [place], [address], 09/07/2022 16:50:27 09/07/19 23 09/07/2022 COMPR EHENS MARCELO METAB OLIC PANL potassium 4.5 mmol/ L (3.6-5 .2) Not Available [facility] [address] [place], [address], 09/07/2022 16:50:27 09/07/19 23 09/07/2022 COMPR EHENS MARCELO METAB OLIC PANL chloride 87 mmol/ L (98-10 7) low Not Available [facility] [address] [place], [address], 09/07/2022 16:50:27 09/07/19 23 09/07/2022 COMPR EHENS MARCELO METAB OLIC PANL bicarbonate 28 mmol/ L (22-29 ) Not Available [facility] [address] [place], [address], 09/07/2022 16:50:27 09/07/19 23 09/07/2022 COMPR EHENS MARCELO METAB OLIC PANL anion gap 12 (4-17) Not Available [facility] [address] [place], [address], 09/07/2022 16:50:27 09/07/19 23 09/07/2022 COMPR EHENS MARCELO METAB OLIC PANL albumin 5.0 gm/dL (3.4-4 .8) high Not Available [facility] [address] [place], [address], 09/07/2022 16:50:27 09/07/19 23 09/07/2022 COMPR EHENS MARCELO METAB OLIC PANL calcium 10.3 mg/dL (8.6-1 0.5) Not Available [facility] [address] [place], [address], 09/07/2022 16:50:27 09/07/19 23 09/07/2022 COMPR EHENS MARCELO METAB OLIC PANL bilirubin,to tommy 0.8 mg/dL (0-1.2 ) Not Available [facility] [address] [place], [address], 09/07/2022 16:50:27 09/07/19 23 09/07/2022 COMPR EHENS MARCELO METAB OLIC PANL total protein 7.1 gm/dL (6.2-8 .2) Not Available [facility] [address], [address], 09/07/2022 16:50:27 09/07/19 23 09/07/2022 COMPR EHENS MARCELO METAB OLIC PANL Ag ratio 2.4 Not Available [facility] [address], [address], 09/07/2022 16:50:27 09/07/19 23 09/07/2022 COMPR EHENS MARCELO METAB OLIC PANL AST 27 U/L (0-32) Not Available [facility] [address] [place], [address], 09/07/2022 16:50:27 09/07/19 23 09/07/2022 COMPR EHENS MARCELO METAB OLIC PANL alk phos 59 U/L (35-10 4) Not Available [facility] [address], [address], 09/07/2022 16:50:27 09/07/19 23 09/07/2022 COMPR EHENS MARCELO METAB OLIC PANL ALT 18 U/L (0-33) Not Available [facility] [address] [place], [address], 09/07/2022 16:50:27 09/07/19 23 09/07/2022 COMPR EHENS [...] sex. Not Available [facility] [address] [place], [address], 09/07/2022 16:50:27 09/07/19 23 09/07/2022 GGTP ggtp 26 U/L (5-36) Not Available [facility] [address] [place], [address], 09/07/2022 16:50:28 09/07/19 23 09/07/2022 LIPID PANEL cholesterol, total 207 mg/dL (<200) high Not Available [facility] [address] [place], [address], 09/07/2022 16:50:29 09/07/19 23 09/07/2022 LIPID PANEL triglyceride 85 mg/dL (<150) Not Available [facility] [address] [place], [address], 09/07/2022 16:50:29 09/07/19 23 09/07/2022 LIPID PANEL HDL chol 74 mg/dL (>39) Not Available [facility] [address] [place], [address], 09/07/2022 16:50:29 09/07/19 23 09/07/2022 LIPID PANEL LDL cholesterol, calculated 116 mg/dL (0-130 ) Not Available [facility] [address] [place], [address], 09/07/2022 16:50:29 09/07/19 23 09/07/2022 LIPID PANEL non HDL cholesterol (calc) 133 mg/dL (<160) Not Available [facility] [address] [place], [address], 09/07/2022 16:50:29 09/07/19 23 09/07/2022 COMPL ETE CBC WITH DIFF WBC 5.9 K/mm3 (4.0-1 1.0) Not Available [facility] [address] [place], [address], 09/07/2022 17:10:26 09/07/19 23 09/07/2022 COMPL ETE CBC WITH DIFF RBC 4.00 M/mm3 (4.20- 5.40) low Not Available [facility] [address] [place], [address], 09/07/2022 17:10:26 09/07/19 23 09/07/2022 COMPL ETE CBC WITH DIFF HGB 13.4 gm/dL (11.7- 15.5) Not Available [facility] [address] [place], [address], 09/07/2022 17:10:26 09/07/19 23 09/07/2022 COMPL ETE CBC WITH DIFF HCT 38.2 % (35.7- 45.8) Not Available [facility] [address] [place], [address], 09/07/2022 17:10:26 09/07/19 23 09/07/2022 COMPL ETE CBC WITH DIFF MCV 95.5 fL (80.0- 100.0) Not Available [facility] [address] [place], [address], 09/07/2022 17:10:26 09/07/19 23 09/07/2022 COMPL ETE CBC WITH DIFF MCH 33.5 pg (27.0- 34.0) Not Available [facility] [address] [place], [address], 09/07/2022 17:10:26 09/07/19 23 09/07/2022 COMPL ETE CBC WITH DIFF MCHC 35.1 g/dL (33.0- 37.0) Not Available [facility] [address] [place], [address], 09/07/2022 17:10:26 09/07/19 23 09/07/2022 COMPL ETE CBC WITH DIFF plt 173 K/mm3 (150-4 60) Not Available [facility] [address] [place], [address], 09/07/2022 17:10:26 09/07/19 23 09/07/2022 COMPL ETE CBC WITH DIFF RDW-SD 40.8 fL (<47.0 ) Not Available [facility] [address] [place], [address], 09/07/2022 17:10:26 09/07/19 23 09/07/2022 COMPL ETE CBC WITH DIFF MPV 9.6 fL (9.4-1 2.4) Not Available [facility] [address] [place], [address], 09/07/2022 17:10:26 09/07/19 23 09/07/2022 COMPL ETE CBC WITH DIFF automated NRBC 0.0 #/100 _WBC' s Not Available [facility] [address] [place], [address], 09/07/2022 17:10:26 09/07/19 23 09/07/2022 COMPL ETE CBC WITH DIFF abs. NRBC 0.0 K/mm3 Not Available [facility] [address] [place], [address], 09/07/2022 17:10:26 09/07/19 23 09/07/2022 COMPL ETE CBC WITH DIFF neut # 4.1 K/mm3 (1.3-7 .0) Not Available [facility] [address] [place], [address], 09/07/2022 17:10:26 09/07/19 23 09/07/2022 COMPL ETE CBC WITH DIFF lymph # 1.0 K/mm3 (0.8-3 .1) Not Available [facility] [address] [place], [address], 09/07/2022 17:10:26 09/07/19 23 09/07/2022 COMPL ETE CBC WITH DIFF mono# 0.7 K/mm3 (0.4-0 .9) Not Available [facility] [address] [place], [address], 09/07/2022 17:10:26 09/07/19 23 09/07/2022 COMPL ETE CBC WITH DIFF eo # 0.0 K/mm3 (0.0-0 .4) Not Available [facility] [address] [place], [address], 09/07/2022 17:10:26 09/07/19 23 09/07/2022 COMPL ETE CBC WITH DIFF baso # 0.0 K/mm3 (0.0-0 .1) Not Available [facility] [address] [place], [address], 09/07/2022 17:10:26 09/07/19 23 09/07/2022 COMPL ETE CBC WITH DIFF abs. imm gran 0.0 K/mm3 Not Available [facility] [address] [place], [address], 09/07/2022 17:10:26 09/07/19 23 09/07/2022 COMPL ETE CBC WITH DIFF neut 70.6 % (44-76 ) Not Available [facility] [address] [place], [address], 09/07/2022 17:10:26 09/07/19 23 09/07/2022 COMPL ETE CBC WITH DIFF lymph 17.4 % (15-43 ) Not Available [facility] [address] [place], [address], 09/07/2022 17:10:26 09/07/19 23 09/07/2022 COMPL ETE CBC WITH DIFF monocyte 11.2 % (4.5-1 0.5) high Not Available [facility] [address] [place], [address], 09/07/2022 17:10:26 09/07/19 23 09/07/2022 COMPL ETE CBC WITH DIFF eo 0.2 % (0-6) Not Available [facility] [address] [place], [address], 09/07/2022 17:10:26 09/07/19 23 09/07/2022 COMPL ETE CBC WITH DIFF baso 0.3 % (0-2) Not Available [facility] [address], [address], 09/07/2022 17:10:26 09/07/19 23 09/07/2022 COMPL ETE CBC WITH DIFF imm gran 0.3 % Not Available [facility] [address] [place], [address], 09/07/2022 17:10:26 09/28/19 23 09/27/2022 BASIC METAB OLIC PANEL glucose 104 mg/dL (70-99 ) high Not Available [facility] [address] [place], [address], 09/27/2022 18:29:53 09/28/19 23 09/27/2022 BASIC METAB OLIC PANEL BUN 8 mg/dL (8-23) Not Available [facility] [address] [place], [address], 09/27/2022 18:29:53 09/28/19 23 09/27/2022 BASIC METAB OLIC PANEL creatinine 0.6 mg/dL (0.5-1 .0) Not Available [facility] [address] [place], [address], 09/27/2022 18:29:53 09/28/19 23 09/27/2022 BASIC METAB OLIC PANEL sodium 130 mmol/ L (133-1 45) low Not Available [facility] [address] [place], [address], 09/27/2022 18:29:53 09/28/19 23 09/27/2022 BASIC METAB OLIC PANEL potassium 5.0 mmol/ L (3.6-5 .2) Not Available [facility] [address] [place], [address], 09/27/2022 18:29:53 09/28/19 23 09/27/2022 BASIC METAB OLIC PANEL chloride 91 mmol/ L (98-10 7) low Not Available [facility] [address] [place], [address], 09/27/2022 18:29:53 09/28/19 23 09/27/2022 BASIC METAB OLIC PANEL bicarbonate 27 mmol/ L (22-29 ) Not Available [facility] [address] [place], [address], 09/27/2022 18:29:53 09/28/19 23 09/27/2022 BASIC METAB OLIC PANEL anion gap 12 (4-17) Not Available [facility] [address] [place], [address], 09/27/2022 18:29:53 09/28/19 23 09/27/2022 BASIC METAB OLIC PANEL calcium 10.4 mg/dL (8.6-1 0.5) Not Available [facility] [address] [place], [address], 09/27/2022 18:29:53 09/28/19 23 09/27/2022 BASIC METAB [...] sex. Not Available [facility] [address] [place], [address], 09/27/2022 18:29:53 11/07/19 23 11/06/2022 BASIC METAB OLIC PANEL glucose 99 mg/dL (70-99 ) Not Available [facility] [address] [place], [address], 11/06/2022 21:36:59 11/07/19 23 11/06/2022 BASIC METAB OLIC PANEL BUN 7 mg/dL (8-23) low Not Available [facility] [address] [place], [address], 11/06/2022 21:36:59 11/07/19 23 11/06/2022 BASIC METAB OLIC PANEL creatinine 0.5 mg/dL (0.5-1 .0) Not Available [facility] [address] [place], [address], 11/06/2022 21:36:59 11/07/19 23 11/06/2022 BASIC METAB OLIC PANEL sodium 131 mmol/ L (133-1 45) low Not Available [facility] [address] [place], [address], 11/06/2022 21:36:59 11/07/19 23 11/06/2022 BASIC METAB OLIC PANEL potassium 4.5 mmol/ L (3.6-5 .2) Not Available [facility] [address] [place], [address], 11/06/2022 21:36:59 11/07/19 23 11/06/2022 BASIC METAB OLIC PANEL chloride 93 mmol/ L (98-10 7) low Not Available [facility] [address] [place], [address], 11/06/2022 21:36:59 11/07/19 23 11/06/2022 BASIC METAB OLIC PANEL bicarbonate 27 mmol/ L (22-29 ) Not Available [facility] [address] [place], [address], 11/06/2022 21:36:59 11/07/19 23 11/06/2022 BASIC METAB OLIC PANEL anion gap 11 (4-17) Not Available [facility] [address] [place], [address], 11/06/2022 21:36:59 11/07/19 23 11/06/2022 BASIC METAB OLIC PANEL calcium 10.2 mg/dL (8.6-1 0.5) Not Available [facility] [address] [place], [address], 11/06/2022 21:36:59 11/07/19 23 11/06/2022 BASIC METAB OLIC PANEL estimated GFR creatinine 104 mL/mi n/1.7 3_M2 Creat inine based estim ated glome sydneyr retr ation (eGFR ) in adult s is calcu lated using the Natio nal Kidne y Found ation recom emery d 2020 CKD-E PI equat ion. Estim ates GFR from serum creat inine , age and sex. Not Available [facility] [address] [place], [address], 11/06/2022 21:36:59 02/02/20 23 02/01/2023 LAB ONLY URINA LYSIS appear/color COLOR LESS CLEAR Not Available [facility] [address] [place], [address], 02/01/2023 20:11:29 02/02/20 23 02/01/2023 LAB ONLY URINA LYSIS sp. gravity 1.006 (1.002 -1.030 ) Not Available [facility] [address] [place], [address], 02/01/2023 20:11:29 02/02/20 23 02/01/2023 LAB ONLY URINA LYSIS urine pH 6.0 (5.0-8 .0) Not Available [facility] [address] [place], [address], 02/01/2023 20:11:29 02/02/20 23 02/01/2023 LAB ONLY URINA LYSIS urine albumin NEGATI VE (neg) Not Available [facility] [address] [place], [address], 02/01/2023 20:11:29 02/02/20 23 02/01/2023 LAB ONLY URINA LYSIS urine glucose NEGATI VE (neg) Not Available [facility] [address] [place], [address], 02/01/2023 20:11:29 02/02/20 23 02/01/2023 LAB ONLY URINA LYSIS urine ketones NEGATI VE (neg) Not Available [facility] [address] [place], [address], 02/01/2023 20:11:29 02/02/20 23 02/01/2023 LAB ONLY URINA LYSIS urine bilirubin NEGATI VE (neg) Not Available [facility] [address] [place], [address], 02/01/2023 20:11:29 02/02/20 23 02/01/2023 LAB ONLY URINA LYSIS urine hemoglobin NEGATI VE (neg) Not Available [facility] [address] [place], [address], 02/01/2023 20:11:29 02/02/20 23 02/01/2023 LAB ONLY URINA LYSIS urine nitrite NEGATI VE (neg) Not Available [facility] [address] [place], [address], 02/01/2023 20:11:29 02/02/20 23 02/01/2023 LAB ONLY URINA LYSIS urine leukocyte NEGATI VE (neg) Not Available [facility] [address] [place], [address], 02/01/2023 20:11:29 02/02/20 23 02/01/2023 LAB ONLY URINA LYSIS urobilinogen NORMAL mg/dL (norm) Not Available [facility] [address] [place], [address], 02/01/2023 20:11:29 02/02/20 23 02/01/2023 LAB ONLY URINA LYSIS urine WBCs NONE SEEN /hpf (0-5) Not Available [facility] [address] [place], [address], 02/01/2023 20:11:29 02/02/20 23 02/01/2023 LAB ONLY URINA LYSIS urine RBCs 1 /hpf (0-3) Not Available [facility] [address] [place], [address], 02/01/2023 20:11:29 02/02/20 23 02/01/2023 LAB ONLY URINA LYSIS squamous epith <1 /hpf (0-8) Not Available [facility] [address] [place], [address], 02/01/2023 20:11:29 02/02/20 23 02/01/2023 SODIU M, URINE MMOL/ L sodium, urine mmol/L 20 mmol/ L Not Available [facility] [address] [place], [address], 02/01/2023 20:21:00 02/02/20 23 02/01/2023 COMPR EHENS MARCELO METAB OLIC PANL glucose 92 mg/dL (70-99 ) Not Available [facility] [address] [place], [address], 02/01/2023 20:39:07 02/02/20 23 02/01/2023 COMPR EHENS MARCELO METAB OLIC PANL BUN 11 mg/dL (8-23) Not Available [facility] [address] [place], [address], 02/01/2023 20:39:07 02/02/20 23 02/01/2023 COMPR EHENS MARCELO METAB OLIC PANL creatinine 0.6 mg/dL (0.5-1 .0) Not Available [facility] [address] [place], [address], 02/01/2023 20:39:07 02/02/20 23 02/01/2023 COMPR EHENS MARCELO METAB OLIC PANL sodium 132 mmol/ L (133-1 45) low Not Available [facility] [address] [place], [address], 02/01/2023 20:39:07 02/02/20 23 02/01/2023 COMPR EHENS MARCELO METAB OLIC PANL potassium 4.2 mmol/ L (3.6-5 .2) Not Available [facility] [address] [place], [address], 02/01/2023 20:39:07 02/02/20 23 02/01/2023 COMPR EHENS MARCELO METAB OLIC PANL chloride 95 mmol/ L (98-10 7) low Not Available [facility] [address] [place], [address], 02/01/2023 20:39:07 02/02/20 23 02/01/2023 COMPR EHENS MARCELO METAB OLIC PANL bicarbonate 26 mmol/ L (22-29 ) Not Available [facility] [address] [place], [address], 02/01/2023 20:39:07 02/02/20 23 02/01/2023 COMPR EHENS MARCELO METAB OLIC PANL anion gap 11 (4-17) Not Available [facility] [address] [place], [address], 02/01/2023 20:39:07 02/02/20 23 02/01/2023 COMPR EHENS MARCELO METAB OLIC PANL albumin 5.0 gm/dL (3.4-4 .8) high Not Available [facility] [address] [place], [address], 02/01/2023 20:39:07 02/02/20 23 02/01/2023 COMPR EHENS MARCELO METAB OLIC PANL calcium 9.7 mg/dL (8.6-1 0.5) Not Available [facility] [address] [place], [address], 02/01/2023 20:39:07 02/02/20 23 02/01/2023 COMPR EHENS MARCELO METAB OLIC PANL bilirubin,to tommy 0.5 mg/dL (0-1.2 ) Not Available [facility] [address] [place], [address], 02/01/2023 20:39:07 02/02/20 23 02/01/2023 COMPR EHENS MARCELO METAB OLIC PANL total protein 6.9 gm/dL (6.2-8 .2) Not Available [facility] [address] [place], [id number], 02/01/2023 20:39:07 02/02/20 23 02/01/2023 COMPR EHENS MARCELO METAB OLIC PANL Ag ratio 2.6 Not Available [facility] [address] [place], [address], 02/01/2023 20:39:07 02/02/20 23 02/01/2023 COMPR EHENS MARCELO METAB OLIC PANL AST 27 U/L (0-32) Not Available [facility] [address] [place], [id number], 02/01/2023 20:39:07 02/02/20 23 02/01/2023 COMPR EHENS MARCELO METAB OLIC PANL alk phos 57 U/L (35-10 4) Not Available [facility] [address] [place], [id number], 02/01/2023 20:39:07 02/02/20 23 02/01/2023 COMPR EHENS MARCELO METAB OLIC PANL ALT 22 U/L (0-33) Not Available [facility] [address] [place], [id number], 02/01/2023 20:39:07 02/02/20 23 02/01/2023 COMPR EHENS [...] Available [facility] [address] [place], [id number], 02/01/2023 20:39:07 02/02/20 23 02/01/2023 OSMOL ALITY , URINE RANDO M osmolality, urine random 146 mOsm/ kg (50-14 00) Not Available [facility] [address] [place], [id number], 02/01/2023 20:40:47 02/02/20 23 02/01/2023 OSMOL ALITY , SERUM osmolality, serum 274 mos/k g (280-2 90) low Not Available [facility] [address] [place], [address], 02/01/2023 20:52:56 07/19/19 24 07/19/2023 LAB ONLY URINA LYSIS appear/color COLOR LESS CLEAR Not Available [facility] [address] [place], [address], 07/19/2023 16:43:14 07/19/19 24 07/19/2023 LAB ONLY URINA LYSIS sp. gravity 1.007 (1.002 -1.030 ) Not Available [facility] [address] [place], [id number], 07/19/2023 16:43:14 07/19/19 24 07/19/2023 LAB ONLY URINA LYSIS urine pH 7.0 (5.0-8 .0) Not Available [facility] [address] [place], [address], 07/19/2023 16:43:14 07/19/19 24 07/19/2023 LAB ONLY URINA LYSIS urine albumin NEGATI VE (neg) Not Available [facility] [address] [place], [address], 07/19/2023 16:43:14 07/19/19 24 07/19/2023 LAB ONLY URINA LYSIS urine glucose NEGATI VE (neg) Not Available [facility] [address] [place], [address], 07/19/2023 16:43:14 07/19/19 24 07/19/2023 LAB ONLY URINA LYSIS urine ketones NEGATI VE (neg) Not Available [facility] [address] [place], [address], 07/19/2023 16:43:14 07/19/19 24 07/19/2023 LAB ONLY URINA LYSIS urine bilirubin NEGATI VE (neg) Not Available [facility] [address] [place], [address], 07/19/2023 16:43:14 07/19/19 24 07/19/2023 LAB ONLY URINA LYSIS urine hemoglobin NEGATI VE (neg) Not Available [facility] [address] [place], [address], 07/19/2023 16:43:14 07/19/19 24 07/19/2023 LAB ONLY URINA LYSIS urine nitrite NEGATI VE (neg) Not Available [facility] [address] [place], [address], 07/19/2023 16:43:14 07/19/19 24 07/19/2023 LAB ONLY URINA LYSIS urine leukocyte NEGATI VE (neg) Not Available [facility] [address] [place], [address], 07/19/2023 16:43:14 07/19/19 24 07/19/2023 LAB ONLY URINA LYSIS urobilinogen NORMAL mg/dL (norm) Not Available [facility] [address] [place], [address], 07/19/2023 16:43:14 07/19/19 24 07/19/2023 LAB ONLY URINA LYSIS urine WBCs <1 /hpf (0-5) Not Available [facility] [address] [place], [address], 07/19/2023 16:43:14 07/19/19 24 07/19/2023 LAB ONLY URINA LYSIS urine RBCs <1 /hpf (0-3) Not Available [facility] [address] [place], [address], 07/19/2023 16:43:14 07/19/19 24 07/19/2023 LAB ONLY URINA LYSIS bacteria SLIGHT hpf (neg) abnormal Not Available [facility] [address] [place], [address], 07/19/2023 16:43:14 07/19/19 24 07/19/2023 BASIC METAB OLIC PANEL glucose 109 mg/dL (70-99 ) high Not Available [facility] [address] [place], [address], 07/19/2023 21:41:47 07/19/19 24 07/19/2023 BASIC METAB OLIC PANEL BUN 9 mg/dL (8-23) Not Available [facility] [address] [place], [address], 07/19/2023 21:41:47 07/19/19 24 07/19/2023 BASIC METAB OLIC PANEL creatinine 0.6 mg/dL (0.5-1 .0) Not Available [facility] [address] [place], [address], 07/19/2023 21:41:47 07/19/19 24 07/19/2023 BASIC METAB OLIC PANEL sodium 132 mmol/ L (133-1 45) low Not Available [facility] [address] [place], [address], 07/19/2023 21:41:47 07/19/19 24 07/19/2023 BASIC METAB OLIC PANEL potassium 5.7 mmol/ L (3.6-5 .2) high Not Available [facility] [address] [place], [address], 07/19/2023 21:41:47 07/19/19 24 07/19/2023 BASIC METAB OLIC PANEL chloride 94 mmol/ L (98-10 7) low Not Available [facility] [address] [place], [address], 07/19/2023 21:41:47 07/19/19 24 07/19/2023 BASIC METAB OLIC PANEL bicarbonate 28 mmol/ L (22-29 ) Not Available [facility] [address] [place], [address], 07/19/2023 21:41:47 07/19/19 24 07/19/2023 BASIC METAB OLIC PANEL anion gap 10 (4-17) Not Available [facility] [address] [place], [address], 07/19/2023 21:41:47 07/19/19 24 07/19/2023 BASIC METAB OLIC PANEL calcium 9.8 mg/dL (8.6-1 0.5) Not Available [facility] [address] [place], [address], 07/19/2023 21:41:47 07/19/19 24 07/19/2023 BASIC METAB [...] Available [facility] [address] [place], [address], 07/19/2023 21:41:47 05/16/20 23 05/16/2023 MAMMO , [...] Lay letter mailed to walter dunbar WSN: [id number] Orderi ng Physic melonie: Torsten Cross Dictat ed By: Fan Antonio MD Dictat ed Date/T paul: 2:30 pm Review ed By: Fan Antonio MD Signed By: Fan Antonio MD Signed Date/T paul: 2:30 pm Transc ribed By: PARVIN Transc riptio n Date/T paul: 2:28 pm Birads : Walter t Class: Outpat ient [facility] (Outpt Imaging) [address], [place], [address], 06/11/2023 10:21:15 05/16/20 23 05/16/2023 MAMMO , scree gisela, digit al, bilat eral No observ ation record ed. [facility] [address], [place], [address], 06/11/2023 10:21:15 07/17/19 25 07/17/2024 MAMMO , [...] Lay letter mailed to walter dunbar WSN: [id number] Orderi ng Physic melonie: Torsten Cross Dictcharity ed By: Marilia Atkins MD Dictat ed Date/T paul: 4:53 pm Review ed By: Lisa huynh MD , Marilia Capellan Signed By: Marilia Atkins MD Signed Date/T paul: 4:53 pm Transc ribed By: CSB Transc riptio n Date/T paul: 4:52 pm Birads : Patien t Class: Outpat ient [id number] [facility] (Outpt Imaging) [address] [facility], [place], [address], 07/20/2024 10:09:56 07/17/1907/17/2024 MAMMO , scree gisela, bilat eral No observ ation record ed. [facility] [address] [facility], [place], [address], 07/20/2024 10:11:26 Result Notes None recorded. Problems Name Problem SNOMED Code Status Onset Date Resolution Date Notes Provider Name and Address Organization Details Recorded Time Subconjun ctival hemorrhag e 64894560 Completed 10/17/2015 Torsten Groves MD [address] [facility] [address], [place], [address], [facility] 6 11:58:09 Insomnia 112146459 Active Torsten Groves MD [address], [place], [address], [facility] 6 11:58:09 Acute pharyngit is 573823434 Completed 10/17/2015 Torsten Groves MD [address] [facility] [address], [place], [address], [facility] 6 11:58:09 Viral disease 55019226 Completed 10/17/2015 Torsten Groves MD [address], [place], [address], [facility] 6 11:58:09 Mild anxiety 72482508 Active Torsten Groves MD [address], [place], [address], [facility] 6 12:13:59 Internal hemorrhoi ds 91642234 Active 2016 Torsten Groves MD [address], [place], [address], [facility] 7 15:04:29 Osteoarth ritis 772171302 Active 2016 severe right hand Torsten Groves MD [address], [place], [address], [facility] 7 18:20:43 Total bilirubin above reference range 38040582731 9108 Completed 202104/23/2022 Torsten Groves MD [address], [place], [address], [facility] 2 14:57:56 Essential hypertens ion 65566673 Active 2021 Torsten Groves MD [address], [place], [address], [facility] 2 15:13:42 Electroca rdiogram abnormal 342643219 Active 2021 Torsten Groves MD [address], [place], [address], [facility] 2 22:02:36 Body mass index 25-29 - overweigh t 245868639 Active 2021 Torsten Groves MD [address], [place], [address], [facility] 2 13:15:09 Lesion of liver 227286676 Active 2021 2.4cm right lobe cyst Torsten Groves MD [address], [place], [address], [facility] 2 14:56:32 Liver enzymes outside reference range 314322989 Completed 202101/27/2023 Torsten Groves MD [address], [place], [address], [facility] 3 14:23:16 Hyponatre deirdre 04056090 Completed 202210/10/2023 Torsten Groves MD [address], [place], [address], [facility] 4 14:23:32 Hyperchol esterolem ia 31488485 Active 2022 Torsten Groves MD [address], [place], [address], [facility] 3 12:44:52 Problem Notes None recorded. Procedures Surgical History Date Name Laterality Status Provider Name and Address Organization Details Recorded Time 5 Most Recent Mammogram completed Larissa Garcia [facility] 07/20/2024 10:09:54 3 Colonoscopy completed Torsten Groves MD [address] [facility] [address] [facility], [place], [address], [facility] 05/16/2023 07:19:48 9 Mammogram Screening completed Danae Daily [facility] 11/24/2018 10:28:48 6 Date of Last Pap Smear completed Torsten Groves MD [address] [address], [place], [address], [facility] 10/18/2015 12:08:03 2 Most Recent Bone Density completed Cyndee Smith MA [facility] 10/17/2015 15:06:33 2 Dxa bone density study completed Cyndee Smith MA [facility] 10/17/2015 15:06:34 0 Date of Last Colonoscopy completed Cyndee Smith MA [facility] 12/03/2016 14:02:56 0 Caesarean Section completed Cyndee Smith MA [facility] 09/17/2014 13:11:51 7 Caesarean Section completed Cyndee Smith MA [facility] 09/17/2014 13:11:51 Imaging Results Imaging Date Name Status LastModified by Organiz ation Details LastModified Time 05/16/2023 MAMMO, screening, digital, bilateral completed [facility] (Outpt Imaging) [address] [place], [address], 06/11/2023 10:21:15 05/16/2023 MAMMO, screening, digital, bilateral completed [facility] [address] [place], [address], 06/11/2023 10:21:15 07/17/2024 MAMMO, screening, digital, bilateral completed [address] (Outpt Imaging) [address] [place], [address], 07/20/2024 10:09:56 07/17/2024 MAMMO, screening, bilateral completed [address] [place], [address], 07/20/2024 10:11:26 Procedure Notes None recorded. Medical Equipment None Reported. Allergies Allergen ID Allergen Name Allergen Category Reaction Reaction Severity Criticality Documentation Date Start Date Code Code System Note Provider Name and Address Organization Details Recorded Time 05842 losartan medicatio n Not available Not available high 07/21/2023 35569 RxNorm hyper kalem ia Torsten Groves MD [address] [facility] [address], [place], [address] [place] [address] 15:30:45 Medications Name Sig Start Date Stop [...] Updated DateTime 3 154.94 cm 27 kg/m2 18895.7 1 g 72 /min 99 % 99 % 97.3 [degF] 148 mm[Hg] 83 mm[Hg] 140 mm[Hg] 80 mm[Hg] Jeslalit Zuniga [facility] 3 14:35:05 Date Recorded Body height Body mass index (BMI) Body weight Heart rate Oxygen saturation Oxygen saturation in Arterial blood by Pulse oximetry Body temperature Systolic blood pressure Diastolic blood pressure Provider Name and Address Organization Details Last Updated DateTime 3 154.94 cm 26.5 kg/m2 69488.0 3 g 65 /min 97 % 97 % 96.5 [degF] 138 mm[Hg] 85 mm[Hg] [facility] 3 11:36:45 Date Recorded Body height Body mass index (BMI) Body weight Heart rate Oxygen saturation Oxygen saturation in Arterial blood by Pulse oximetry Body temperature Systolic blood pressure Diastolic blood pressure Provider Name and Address Organization Details Last Updated DateTime 3 154.94 cm 27 kg/m2 37721.7 1 g 71 /min 98 % 98 % 98.3 [degF] 156 mm[Hg] 83 mm[Hg] Marlen Mccurdy [facility] 3 10:12:45 Date Recorded Body height Body mass index (BMI) Body weight Heart rate Oxygen saturation Oxygen saturation in Arterial blood by Pulse oximetry Body temperature Systolic blood pressure Diastolic blood pressure Systolic blood pressure Diastolic blood pressure Provider Name and Address Organization Details Last Updated DateTime 3 154.94 cm 26.5 kg/m2 84398.0 3 g 65 /min 96 % 96 % 98 [degF] 148 mm[Hg] 80 mm[Hg] 134 mm[Hg] 78 mm[Hg] [facility] 10:26:17 Date Recorded Body height Body mass index (BMI) Body weight Heart rate Oxygen saturation Oxygen saturation in Arterial blood by Pulse oximetry Body temperature Systolic blood pressure Diastolic blood pressure Provider Name and Address Organization Details Last Updated DateTime 4 154.94 cm 26.7 kg/m2 66304.6 2 g 59 /min 98 % 98 % 98.5 [degF] 169 mm[Hg] 85 mm[Hg] Jes Zuniga [facility] 4 14:03:03 Date Recorded Systolic blood pressure Diastolic blood pressure Provider Name and Address Organization Details Last Updated DateTime 10/10/2023 136 mm[Hg] 86 mm[Hg] Torsten Groves MD [address] [address], [place], [address], [facility] 10/10/2023 14:35:18 Social History Question Answer Notes LastModified by Organizat ion Details LastModified Time Tobacco Smoking Status Never Smoker Cyndee Smith MA null, [facility] 09/17/2014 13:11:41 Do You Have An Advance [...] 04/26/2022 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 3 Lizeth Joan Juliane Information not available 09/17/2014 Do You Use [...] le 04/26/2022 11:19:41 Medical History Condition Response Other N Gout N Kidney Stones N Blood Diseases N Hyperthyroidism N Breast Cancer N Depression N COPD N Lung Disease N Hypothyroidism N Defects or Inherited Disease N Anesthesia Complications N Headaches/Migraines N Varicose Veins N Anxiety Disorder Y Muscle, Joint, or Bone Problems Y Obesity N Vision or Eye Problems N Arthritis N Head Injury/Concussion N Polyps N Infertility N Congenital Anomalies N Acid Reflux (GERD) N Cancer N Stroke N ADHD N Endometriosis N High Cholesterol N Liver Disease N Fibromyalgia N Kidney Disease N Heart Problems N Ear or Hearing Problems N Hospitalizations Y Thyroid Problems N GI Problems N Acne N Skin Problems N Eating Disorder N Anemia N Constipation N Bladder Problems N Mental Illness N Ovarian Cancer N Diabetes N Blood Transfusions N Seizures/Epilepsy N Tuberculosis N AIDS/HIV N Congestive Heart Failure (CHF) N Eczema N Diverticulitis N Abuse/Domestic Violence N Asthma N Allergies N Reflux/GERD N [...] high-dose, trivalent, PF 4 completed Not Available [facility] 06/11/2023 10:01:57 Influenza, split virus, quadrivalent, preservative 6 completed WOODY Rayo [facility] 12/03/2016 14:15:02 Tdap 7 completed Not Available [facility] 03/11/2023 10:04:07 Influenza, split virus, quadrivalent, PF [facility] 14:19:58 Influenza, high-dose, trivalent, PF 4 completed WOODY Rayo [facility] 03/20/2022 14:19:58 COVID-19, mRNA, LNP-S, PF, 100 mcg/0.5mL dose or 50 mcg/0.25mL dose 1 completed WOODY Rayo [facility] 03/20/2022 14:19:58 COVID-19, mRNA, LNP-S, PF, 100 mcg/0.5mL dose or 50 mcg/0.25mL dose 0 completed WOODY Rayo [facility] 03/20/2022 14:19:58 Influenza, MDCK, quadrivalent, PF 8 completed WOODY Rayo [facility] 03/20/2022 14:19:58 Influenza, split virus, quadrivalent, PF 1 completed WOODY Rayo [facility] 03/20/2022 14:19:58 COVID-19, mRNA, LNP-S, PF, 100 mcg/0.5mL dose or 50 mcg/0.25mL dose 2 completed WOODY Rayo [facility] 03/20/2022 14:19:58 Influenza, split virus, quadrivalent, PF 7 completed Cyndee Luis [place] [facility] 03/20/2022 14:19:58 Influenza, split virus, quadrivalent, PF 2 completed [place] [facility] 08/13/2022 14:30:14 Past Encounters Encounter ID Performer Location Encounter Start Date Encounter Closed Date Diagnosis/Indication Diagnosis SNOMED-CT Code Diagnosis ICD10 Code Diagnosis Note [id number] Cyndee Smith MA Main Office [address] [address] 09/17/2014 12:41:28 09/17/2014 13:54:31 Adult health examination 880447913 Immunizati on status utd per pt via her employer (works at [employer]). Will screen based on risk factors. Reports recent breast, cervical and colon cancer screening, will track down those records. Regular dental and ophtho care advised as well as seatbelt and sunscreen use. Distracted driving discussed. Advance directives in place. Family his tory of ischemic heart disease 907628251 Subconjunc tival hemorrhage 12313150 Has already seen optho. Will check CBC to rule out thrombocyt openia and also to assess her history of anemia. Insomnia 169502671 Follo wed and managed by Dr Robles. [id number] Torsten Groves MD Main Office [address] [address] 09/28/2015 10:02:35 09/28/2015 10:54:23 Acute pharyngitis 102637010 J02.9 Viral disease 11687163 B 34.9 [id number] Torsten Groves MD Main Office [address] [address] 10/17/2015 14:51:12 10/17/2015 16:03:57 Adult health examination 724807122 Z00.00 Immunizati on status utd per pt via her employer (works at [employer]). Screening utd based on risk factors. Breast and cervical cancer screening are utd. Colon cancer screening utd per pt report. Regular dental and ophtho care advised as well as seat belt and sunscreen use. Distracted driving discussed. Advance directives in place. Mild anxiety 70815093 F4 1.8 Overall coping well at this time in spite of personal stressors. Following with psych. [id number] Torsten Groves MD Main Office [address] [place] [address] 12/03/2016 14:07:24 12/03/2016 15:26:10 Adult health examination 896993277 Z00.01 Immunizati on status utd per pt via her employer (works at [employer]). Asked to bring in copy of records for chart here. Screening utd based on risk factors. Breast and cervical cancer screening are utd. Colon cancer screening utd. Regular dental and ophtho care advised as well as seat belt and sunscreen use. Distracted driving discussed. Advance directives in place. [facility] node 963211596 M15.1 Will image to look for extensive arthritic disease and consult rheum to rule out osteo vs inflammato ry arthritis. Neck pain 18625969 M54.2 Persistent for more than 2 weeks. Will ask physiatry for further advice. Pt advised to pursue this via workers compensati on if appropriat e. [id number] Torsten Groves MD Main Office [address] [place] [address] 03/20/2022 14:12:07 03/20/2022 16:10:10 Essential hypertension 89773267 I10 New diagnosis but very severe. Subtle [...] Reassess control in 1 week. Abdominal pain 41060905 R10.9 Possible gastritis vs pancreatit is. Will evaluate further based on lab results. Total bili hutson above reference range 5678326646 29337 R17 Elevated LFT's in context of daily ETOH use raised concern for cirrhosis. Will refer for imaging to elaborate further. Body mass index 25-29 - overweight 172992021 E66.3 Z68.28 Alcohol dependence 75483 003 F10.20 Advised to slowly try and reduce daily use volume. Already on lorazepma via psych. [id number] Torsten Groves MD Main Office [address] [facility] [address] [place] [address] 03/29/2022 12:35:14 03/29/2022 13:25:03 Essential hypertension 87056129 I10 Excellent response to amlodipine . SBP not ideal but reasonably controlled . WIll resssess in 3-4 weeks and either add diuretic or titrate amlodidine further. Closed fra cture of fifth metatarsal bone 43729330 S92.355D Has appt with [facility] tomorrow. Liver enzy mes level above reference range 711498495 R74.01 CT has been ordered. Will see what's holding up the scheduling . [id number] Gamaliel Hughes PA-C Main Office [address] [address] [place] [address] 04/26/2022 11:19:10 04/26/2022 12:13:32 Essential hypertension 94600763 I10 bp stable, cont meds as dir pt has been oown since seen at ER ~ 5 wks ago -- signed form c rtw on 05.08.22 Lesion of liver 00212900 0 K76.[address] cyst on recent CT - reviewed c pt as well as recent labs - pending gi eval Liver enzy mes outside reference range 375109885 R94.5 see above, pending gi - will help eval c checking hep a/b/c pt states ac last labs last month had a fair amount of etoh on vacation x 2-3 wks at [facility] -- recently more typically has 2 drinks on sat & 2 on sun Thrombocyt openic disorder 806290740 D69.6 will recheck cbc since platelets clumped last month Impaired f asting glycemia 713259415 R73.01 [id number] Torsten Groves MD Main Office [address] [facility] [address] [place] [address] 08/13/2022 14:12:20 08/13/2022 15:02:17 Adult health examination 720802914 Z00.00 Bivalent COVID 19 vaccinatio n ans Shingrix advised via local pharmacy. Will screen based on risk factors. Breast and cervical cancer screening are utd. Colon cancer screening overdue. Regular dental and ophtho care advised as well as seat belt and sunscreen use. Distracted driving discussed. Advance directives in place. Screening for malignant neoplasm of colon 921129488 Z12.11 Has appt with GI in September Lesion of liver 75434228 0 K76.9 Liver enzy mes outside reference range 077878651 R94.5 Will reassess with reduced ETOH use. Essential hypertension 28009089 I10 Excellent response to amlodipine , but having gingivitis since starting it and would like to try another agent. Now that we have lab results will try ACEI/diure tic combo and check labs 2-3 weeks after starting. Mild anxiety 75639727 F4 1.8 Overall coping well at this time in spite of personal stressors. Following with psych. Body mass index 25-29 - overweight 261798921 E66.3 Z68.27 Varicella vaccination 68 054991 Z23 [id number] Torsten Groves MD Main Office [address] [facility] [address] [place] [address] 11/08/2022 11:28:27 11/08/2022 12:08:25 Essential hypertension 19001849 I10 Had an excellent response to amlodipine , but had gingivitis . Looks like ACEI/diure tic were affording low NA. Will see if non dihydropyr idine is better tolerated. D/c lisinopril and recheck labs 2-3 weeks after starting. Hyponatremia 31391666 E8 7.1 Will check SIADH labs. Hypercholesterolemia 136 75039 E78.00 Based on current CVD risk score will focus on TLC. [id number] Torsten Groves MD Main Office [address] [facility] [address] [place] [address] 03/11/2023 10:01:14 03/11/2023 10:51:11 Essential hypertension 91438020 I10 Had an excellent response to amlodipine , but had gingivitis . ACEI/diure tic were thought to be affording low NA. Non dihydropyr idine is better tolerated will titrate dose. Hyponatremia 07891636 E8 7.1 Mild and almost normal. No obvious medication contributo rs. Will try reducing free water intake and monitor. [id number] Torsten Groves MD Main Office [address] [place] [address] 06/11/2023 09:58:54 06/11/2023 10:26:42 Hypercholesterolemia 41858096 E78.00 Based on current CVD risk score will focus on TLC. Essential hypertension 30576213 I10 Had an excellent response to amlodipine , but had gingivitis which recurred with higher dose of diltiazem. ACEI/diure tic were thought to be affording low NA. See if low dose ARB is better tolerated. [id number] Torsten Groves MD Main Office [address] [place] [address] 10/10/2023 13:39:14 10/10/2023 14:43:41 Adult health examination 352435420 Z00.00 COVID 19, PCV20, and Shingrix immunizati ons advised via local pharmacy. Will screen based on risk factors. Breast, colon and cervical cancer screening are utd. Colon cancer screening overdue. Regular dental and ophtho care advised as well as seat belt and sunscreen use. Distracted driving discussed. Advance directives in place. Screening for malignant neoplasm of breast 120057304 Z12.39 Body mass index 25-29 - overweight 481615164 E66.3 Z68.26 Essential hypertension 66569594 I10 Finally well controlled with the help of nephrology . Dr. Joseph is following for now. I will assume prescribin g/mgmt when he signs off. Hypercholesterolemia 136 89791 E78.00 Based on current CVD risk score will focus on TLC. Varicella vaccination 68 662593 Z23 Administra tion of pneumococcal vaccine 20751655 Z23 Health Concerns Section Related Observation LastModified by Organization Detai ls LastModified Time None Recorded Concern Status LastModified by Organization Details LastModified Time None Recorded Advance Directives Directive Y: Payers Encounter Date Sequence Insurance Name Policy Number Policy Marsh Covered Member ID Marsh Member ID Guarantor Name 08/13/2022 1 [facility] [id number] 4 Jing Jaramillo [facility] [id number] Jing Jaramillo [facility] 11/08/2022 1 [facility] [id number] 4 Jing Jaramillo [facility] [id number] Jing Jaramillo [facility] 03/11/2023 1 [facility] [id number] 4 Jing Jaramillo [facility] [id number] Jing Jaramillo [facility] 06/11/2023 1 [facility] [id number] 4 Jing Jaramillo [facility] [id number] Jing Jaramillo [facility] 10/10/2023 1 [facility] [id number] 4 Jing Jaramillo [facility] [facility] [id number] Jing Jaramillo [facility] Notes Date Note Type Note Provider Name and Address Organization Details Recorded Time 3 text/html Generic HPI TemplateReported bypatient.Notes:Here for physical. Having neck pain and hand swelling. Seeing dentist and ophtho regularly. Torsten Groves MD [address] [address], [place], [id number], [facility] 08/13/2022 15:10:31 3 text/html HyperlipidemiaReported bypatient.Type of [...] SIADH labs done. Torsten Groves MD [address] [facility] [address], [place], [phone], [facility] 11/08/2022 12:45:39 3 text/html HyperlipidemiaReported bypatient.Type of [...] Fall were normal. Torsten Groves MD [address], [id number] 03/11/2023 11:03:30 3 text/html HyperlipidemiaReported bypatient.Type of [...] Fall were normal. Torsten Groves MD [address] [facility] [address], [place], [address], [facility] 06/28/2023 06:35:27 4 text/html Generic HPI TemplateReported bypatient.Notes:Here for physical. Having neck pain and hand swelling. Seeing dentist and ophtho regularly. Torsten Groves MD [address] [facility] [address], [place], [phone], [facility] 10/10/2023 14:48:40 OBGyn Episode No OBEpisode recorded.
== END 2024-08-19 11:51 | disposition home or self-care (01) ==
PROVIDERS: PCP Pediatrics; Visit Provider Internal Medicine Nephrology
DX: I10 Essential (primary) hypertension (principal); E87.1 Hypo-osmolality and hyponatremia
CPT/HCPCS: 99214

== ENCOUNTER → 2024-08-19 11:11 | Outpatient (BNVA) | payer MEDICARE, SELFPAY | PROVIDERS: PCP Pediatrics; Visit Provider Internal Medicine Nephrology | DX: I10 Essential (primary) hypertension (principal); E87.1 Hypo-osmolality and hyponatremia | CPT/HCPCS: 99212 ==

== ENCOUNTER 2025-03-12 13:26 | Outpatient (REF) | payer MEDICARE, SELFPAY ==
[2025-03-12 16:15] LABS: Anion Gap 18 (12-20); Blood Urea Nitrogen 9 mg/dL (9-16); Carbon Dioxide 25 mmol/L (22-29); Chloride 93 mmol/L (96-108); Estimated Glomerular Filt Rate > 60; Potassium 4.5 mmol/L (3.3-5.1); Sodium 131 mmol/L (135-145)
== END 2025-03-12 13:27 | disposition home or self-care (01) ==
LOC: HO.HMGCLDS 13:26
PROVIDERS: PCP Pediatrics; Visit Provider Internal Medicine Nephrology
DX: I10 Essential (primary) hypertension (principal); E87.1 Hypo-osmolality and hyponatremia
CPT/HCPCS: 36415; 80051; 82565; 84520

== ENCOUNTER 2025-03-17 14:03 | Outpatient (AMB) | payer MEDICARE, SELFPAY ==
--- NOTE | 2025-03-17 14:04 | HO.NEPHOV_ITS ---
Vital Signs 03/17/25 14:09 Height 5 ft 1 in Weight 133 lb BMI 25.1 BP 158/80 H Blood Pressure Location Rt brachial Position Sitting Pulse 61 Pulse Source Pulse Oximeter Pulse Oximetry (%) 99 Oxygen Delivery Method Room Air Intake Visit Reasons: Hypertension-LVM Living Nurse Required: No Accompanied by: Self / Same As Patient Allergies No Known Allergies Allergy (Verified 03/17/25 14:08) HPI Comments Details: Jing was seen in follow up for history of hyponatremia and hypertension. Patient states that she used to take Ativan, for anxiety as on a needed basis. She was started on amlodipine in the past for blood pressure but was causing gingival issues and it was discontinued. Subsequently she was started on MILA inhibitor/hydrochlorothiazide which has been changed due to hyponatremia. Currently she is not on any diuretics. Patient denies any dizziness, lighth eadedness, vomiting, fever, chills, blurry vision, double vision, loss of vision, chest pain, difficulty breathing, shortness of breath, back pain, night sweats, pain with urination, increased urinary frequency, increased urinary urgency, blood in her urine or stool, syncope or a near syncopal episode, recent trauma or falls, bowel incontinence, bladder incontinence, bowel retention, bladder retention, or any other complaints at this time. She has no weight loss, hemoptysis or any history of malignancy. She has not known to have any thyroid dysfunction, history of hyperkalemia, excessive free water intake, heart failure, paraproteinemia. She claims to be compliant with her medications. Her renal functions are normal. Her serum K went up and her ARB had been discontinued. She now is on Carvedilol bid & diltiazem in the noon time. This is keeping her BP at goal. [facility] Medical History (Updated 12/25/23 @ 11:36 by Rita Mullins PA-C) Mild anxiety Insomnia Internal hemorrhoids Osteoarthritis Lesion of liver Hyperkalemia Hyponatremia Hypercholesterolemia Essential (primary) hypertension Surgical History H/O section H/O colonoscopy Family History Father Arthritis Diabetes Heart disease Brother Malignant tumor of urinary bladder Sister Cerebral palsy Mother Amyotrophic lateral sclerosis Social History Alcohol intake: current Comment: Occasional Patient Tobacco Use Status: Never used Tobacco Review of Systems Const All systems reviewed & are unremarkable except as noted in HPI and below Physical Exam Vital Signs: Last Vital Signs Pulse 61 03/17/25 14:09 BP 158/80 H 03/17/25 14:09 Pulse Ox 99 03/17/25 14:09 Oxygen Delivery Method Room Air 03/17/25 14:09 BMI result Body Mass Index 25.1 Const General: comfortable and no acute distress Orientation/consciousness: patient oriented x3 HEENT Head: Yes normocephalic Mouth: Normal oral and palatal mucosa present Eyes EOM: EOMs intact bilaterally Neck Neck: Yes supple Resp Auscultation: clear to auscultation bilaterally Cardio Jugular venous distension: no JVD Rate: regular rate GI Palpation (GI): Soft to palpation Auscultation: normal bowel sounds General: Yes no CVA tenderness Back/Spine/Pelvis Back: no CVA tenderness Skin General skin exam: no rashes or lesions noted Neuro General: patient oriented x3 and moves all extremities Extrem General: Yes no pedal edema Results Reviewed Nephrology Results: Hgb, (12.0-16.0) 13.6 g/dl 03/19/22 WBC, (4.8-10.8) 6.8 X10*3/uL 03/19/22 Plt Count, (160-400) 180 X10*3/uL 03/19/22 Sodium, (135-145) 131 mmol/L L 03/12/25 Potassium, (3.3-5.1) 4.5 mmol/L 03/12/25 Chloride, (96-108) 93 mmol/L L 03/12/25 Carbon Dioxide, (22-29) 25 mmol/L 03/12/25 BUN, (9-16) 9 mg/dL 03/12/25 Creatinine, (0.5-1.4) 0.54 mg/dL 03/12/25 Calcium, (8.4-10.2) 9.7 mg/dL 03/19/22 Assessment & Plan Assessment & Plan (1) Hyponatremia: Code(s): E87.1 - Hypo-osmolality and hyponatremia Category: Medical (2) Hypertension: Code(s): I10 - Essential (primary) hypertension Category: Medical Qualifiers: Hypertension type: primary hypertension Qualified Code(s): I10 - Essential (primary) hypertension Plan Jing most likely has mild excess ADH. She does not have any mentation changes or weakness. She was euvolemic. Her last serum sodium was 131. She had been on hydrochlorothiazide which had been discontinued. Her cortisol, serum immunofixation, urine sodium, serum and urine osmolality along with uric acid were reviewed. Her losartan was discontinued in the past when her serum K went up to 5.7. She is on diltiazem. 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 ( gingival issues at 240 mg but not now). She can continue carvedilol 6.25 mg twice daily and Diltiazem 120 mg in the afternoon. Labs ordered for F/U. All questions answered. Orders: Orders Creatinine 7 Months E87.1 - Hypo-osmolality and hyponatremia, I10 - Essential (primary) hypertension Blood Urea Nitrogen 7 Months E87.1 - Hypo-osmolality and hyponatremia, I10 - Essential (primary) hypertension Electrolytes 7 Months E87.1 - Hypo-osmolality and hyponatremia, I10 - Essential (primary) hypertension Coding Level of Care Code Est Pt Level 4 (52885) Diagnoses Hyponatremia E87.1 Primary hypertension I10 Hypertension type: primary hypertension
[2025-03-17 14:09] VITALS: BP 158/80; PULSE 61; O2SAT 99; BMI 25.1
== END 2025-03-17 14:21 | disposition home or self-care (01) ==
LOC: HO.HKA 14:04
PROVIDERS: PCP Pediatrics; Visit Provider Internal Medicine Nephrology
DX: E87.1 Hypo-osmolality and hyponatremia (principal); I10 Essential (primary) hypertension
CPT/HCPCS: 99214

== ENCOUNTER → 2025-03-17 14:03 | Outpatient (BNVA) | payer MEDICARE, SELFPAY | PROVIDERS: PCP Pediatrics; Visit Provider Internal Medicine Nephrology | DX: I10 Essential (primary) hypertension (principal); E87.1 Hypo-osmolality and hyponatremia | CPT/HCPCS: 99212 ==

== ENCOUNTER 2025-06-17 10:09 | Outpatient (AMB) | payer MEDICARE, SELFPAY ==
[2025-06-17 10:18] VITALS: BP 154/76; PULSE 58; TEMP 36.7; O2SAT 99; BMI 24.6
--- NOTE | 2025-06-17 10:18 | AM.OFFWIN_ITS ---
Intake Vital Signs 06/17/25 10:18 Height 5 ft 1 in Weight 130 lb BMI 24.6 BP 154/76 H Blood Pressure Location Lt brachial Position Sitting Pulse 58 Pulse Source Pulse Oximeter Temp 98.1 F Temp Source Oral Pulse Oximetry (%) 99 Oxygen Delivery Method Room Air Comment High BP: pt states bp goes up at medical offices. Notified provider. Intake Visit Reasons: EP Sore throat, blocked ears Intake Note: pt presents with non resolving sore throat and bilateral ear blockage x3 wks pt reports she was seen at an 10 days ago, rx'd with steroids and an inhaler that were unhelpful Patient Tobacco Use Status: Never used Tobacco Allergies No Known Allergies Allergy (Verified 06/17/25 10:21) Medication List - Last Reconciled 06/17/25 by Megan Mcmanus NP carvedilol 6.25 mg PO BID diltiazem HCl CD 120 mg PO DAILY 90 days lorazepam 1 mg PO TID PRN zolpidem 10 mg PO BEDTIME PRN Do you need a note to return to daycare/school/sports/work: No HPI HPI Comments History of Present Illness Details 64-year-old female presents with upper r espiratory symptoms. Reports bilateral ear discomfort and sore throat for 3 weeks. She was evaluated at a local urgent care 10 days ago and was prescribed oral prednisone and an albuterol inhaler, but she did not complete the steroid course and did not use the albuterol. She has been using Flonase and cough drops with minimal relief. Denies cough, shortness of breath, chest pressure/tightness, headaches, dizziness, fever, chills, nausea, vomiting. Reports good appetite. Avoids OTC decongestants due to concern for elevated blood pressure. [facility] Medical History (Updated 06/17/25 @ 10:55 by Megan Mcmanus NP) Acute respiratory disease Mild anxiety Insomnia Internal hemorrhoids Osteoarthritis Lesion of liver Hyperkalemia Hyponatremia Hypercholesterolemia Essential (primary) hypertension Surgical History H/O section H/O colonoscopy Family History Father Arthritis Diabetes Heart disease Brother Malignant tumor of urinary bladder Sister Cerebral palsy Mother Amyotrophic lateral sclerosis Social History Alcohol intake: current Comment: Occasional Patient Tobacco Use Status: Never used Tobacco Review of Systems Const All systems reviewed & are unremarkable except as noted in HPI and below Physical Exam Vital Signs: Last Vital Signs Temp 98.1 F 06/17/25 10:18 Pulse 58 06/17/25 10:18 BP 154/76 H 06/17/25 10:18 Pulse Ox 99 06/17/25 10:18 Oxygen Delivery Method Room Air 06/17/25 10:18 BMI result Body Mass Index 24.6 Const General: no acute distress Nutritional Appearance: well nourished Orientation/consciousness: patient oriented x3 HEENT Head: Yes normocephalic Ears: external ears normal and TM abnormal bulging bilateral and with fluid behind the TM bilateral; not erythematous, not perforated and not retracted General nose exam: Nasal discharge present Face and sinus: Yes sinuses nontender Mouth: moist mucous membranes Throat: Yes uvula midline Resp Effort & Inspection: normal respiratory effort and able to speak in complete sentences Auscultation: clear to auscultation bilaterally, no crackles, no rales, no rhonchi and no wheezes Cardio Heart sounds: S1 normal heart sound present and S2 normal heart sound present Neuro General: patient oriented x3 Assessment & Plan Assessment & Plan (1) Acute respiratory disease: Code(s): J06.9 - Acute upper respiratory infection, unspecified Plan: Subacute URI ? symptoms persist for 3 weeks; no red flags and no lower respiratory involvement. Bilateral ear discomfort ? likely related to Eustachian tube dysfunction or congestion. Sore throat ? likely post-nasal drip related. Ordered Azithromycin. Continue Flonase daily as prescribed. Start antihistamine (e.g., cetirizine or loratadine) once daily. Consider nasal saline rinses BID for congestion relief. Return precautions: fever, worsening throat pain, unilateral ear pain, difficulty swallowing, SOB, or new symptoms. Medications: New azithromycin 500 mg PO DAILY 3 tabs 0RF 3 days J06.9 - Acute upper respiratory infection, unspecified Coding Level of Care Code Est Pt Level 4 (84481) Diagnoses Acute respiratory disease J06.9 Time Spent (min) 20
== END 2025-06-17 10:55 | disposition home or self-care (01) ==
PROVIDERS: PCP Pediatrics; Visit Provider Nurse Practitioner Family
DX: J06.9 Acute upper respiratory infection, unspecified (principal)

== ENCOUNTER → 2025-06-17 10:09 | Outpatient (BNVA) | payer MEDICARE, SELFPAY | PROVIDERS: PCP Pediatrics; Visit Provider Nurse Practitioner Family | DX: J06.9 Acute upper respiratory infection, unspecified (principal) | CPT/HCPCS: 99212 ==